=== PATIENT | female | born 1945 | race Caucasian/White ===

== ENCOUNTER 2019-10-29 10:37 | Outpatient (CLI) | payer OTHER, SELFPAY ==
[2019-10-29 12:11] LABS: Blood Urea Nitrogen 8 mg/dL (7-17); Calcium 8.9 mg/dL (8.4-10.2); Carbon Dioxide 26 mmol/L (22-30); Chloride 106 mmol/L (98-107); Cholesterol 128 mg/dL (0-200); Estimated Glomerular Filt Rate > 60; Glucose 95 mg/dL (65-105); HDL Direct 65 mg/dL; Sodium 135 mmol/L (137-145); Triglycerides 110 mg/dL (<150)
[2019-10-29 12:21] LABS: LDL Cholesterol Direct 38 mg/dL
[2019-10-29 12:34] LABS: Vitamin D 25 Hydroxy 51.2 ng/mL
== END 2019-10-29 10:38 | disposition home or self-care (01) ==
PROVIDERS: PCP Internal Medicine; Referring Provider Internal Medicine Medical Oncology; Visit Provider Internal Medicine
DX: C91.10 Chronic lymphocytic leukemia of B-cell type not having achieved remission (principal)
CPT/HCPCS: 36415; 80048; 80061; 82306; 84443

== ENCOUNTER 2020-09-29 12:47 | Outpatient (CLI) | payer OTHER, SELFPAY ==
[2020-09-29 14:23] LABS: Hematocrit 39.2 % (37.0-47.0); Hemoglobin 12.5 g/dL (12.0-15.0); Immature Platelet Fraction Pct 2.6 % (0.9-11.2); Mean Corpuscular HGB Conc 31.9 g/dl (32-36); Mean Corpuscular Hemoglobin 34.8 pg (26-34); Mean Corpuscular Volume 109.2 fl (80-100); Mean Platelet Volume 10.7 fl (7.4-10.4); Platelet Count Result 77 k/mm3 (150-375); Red Blood Count 3.59 M/mm3 (4.2-5.4); Red Cell Distribution Width 14.5 % (11.5-14.5); White Blood Count 5.3 K/mm3 (4.5-10.0)
[2020-09-29 15:01] LABS: Lactate Dehydrogenase 230 U/L (313-618)
== END 2020-09-29 12:48 | disposition home or self-care (01) ==
LOC: ANHLAB 10-17 12:47
PROVIDERS: PCP Internal Medicine; Visit Provider Internal Medicine Medical Oncology
DX: C91.90 Lymphoid leukemia, unspecified not having achieved remission (principal)
CPT/HCPCS: 36415; 83615; 85027; 85055

== ENCOUNTER 2020-09-29 13:51 | Outpatient (CLI) | payer OTHER, SELFPAY ==
[2020-09-29 15:03] LABS: Alanine Aminotransferase 20 U/L (4-35); Albumin Level 2.9 g/dL (3.5-5.1); Alkaline Phosphatase 75 U/L (38-126); Anion Gap 3 mmol/L (8-16); Aspartate Amino Transferase 29 U/L (14-36); Bilirubin,Total 1.1 mg/dL (0.2-1.3); Blood Urea Nitrogen 11 mg/dL (7-17); Calcium 9.3 mg/dL (8.4-10.2); Carbon Dioxide 24 mmol/L (22-30); Chloride 111 mmol/L (98-107); Cholesterol 116 mg/dL (0-200); Estimated Glomerular Filt Rate 40; Glucose 136 mg/dL (65-105); HDL Direct 55 mg/dL; Potassium 3.3 mmol/L (3.4-5.0); Sodium 138 mmol/L (137-145); Triglycerides 85 mg/dL (<150)
[2020-09-29 15:30] LABS: Vitamin D 25 Hydroxy 56.4 ng/mL
[2020-09-29 18:23] LABS: LDL Cholesterol Direct < 30 mg/dL
== END 2020-09-29 13:52 | disposition home or self-care (01) ==
PROVIDERS: PCP Internal Medicine; Visit Provider Nurse Practitioner
DX: E78.5 Hyperlipidemia, unspecified (principal); E03.9 Hypothyroidism, unspecified; E55.9 Vitamin D deficiency, unspecified
CPT/HCPCS: 36415; 80053; 80061; 82306; 83615; 84443; 85027; 85055

== ENCOUNTER 2020-11-17 13:09 | Outpatient (CLI) | payer OTHER, SELFPAY ==
[2020-11-17 14:05] LABS: Basophils Percent Auto 0.2 % (0.2-1.2); Eosinophils Absolute Auto 0.1 K/mm3 (0-0.3); Eosinophils Percent Auto 0.8 % (0-4.4); Hematocrit 41.7 % (37.0-47.0); Hemoglobin 13.4 g/dL (12.0-15.0); Immature Granulocyte Absolute 0.04 K/mm3 (0.00-0.031); Immature Granulocyte Percent A 0.4 % (0-0.5); Immature Platelet Fraction Pct 3.3 % (0.9-11.2); Lymphocytes Absolute Auto 3.44 K/mm3 (0.9-3.2); Mean Corpuscular HGB Conc 32.1 g/dl (32-36); Mean Corpuscular Volume 108.9 fl (80-100); Mean Platelet Volume 10.2 fl (7.4-10.4); Monocytes Absolute Auto 0.8 K/mm3 (0.1-0.6); Monocytes Percent Auto 7.4 % (2.6-8.5); Neutrophils Absolute Auto 6.1 K/mm3 (1.3-6.7); Neutrophils Percent Auto 58.2 % (45.5-73.1); Platelet Count Result 106 k/mm3 (150-375); Red Blood Count 3.83 M/mm3 (4.2-5.4); Red Cell Distribution Width 14.3 % (11.5-14.5); White Blood Count 10.4 K/mm3 (4.5-10.0)
[2020-11-17 14:18] LABS: Alanine Aminotransferase 59 U/L (4-35); Albumin Level 3.3 g/dL (3.5-5.1); Alkaline Phosphatase 134 U/L (38-126); Anion Gap 8 mmol/L (8-16); Aspartate Amino Transferase 53 U/L (14-36); Bilirubin,Total 1.2 mg/dL (0.2-1.3); Blood Urea Nitrogen 16 mg/dL (7-17); Calcium 9.4 mg/dL (8.4-10.2); Carbon Dioxide 24 mmol/L (22-30); Chloride 104 mmol/L (98-107); Cholesterol 133 mg/dL (0-200); Estimated Glomerular Filt Rate 44; Glucose 80 mg/dL (65-110); HDL Direct 83 mg/dL; Lactate Dehydrogenase 251 U/L (313-618); Potassium 3.6 mmol/L (3.4-5.0); Sodium 136 mmol/L (137-145); Triglycerides 88 mg/dL (<150)
[2020-11-17 14:35] LABS: LDL Cholesterol Direct < 30 mg/dL
[2020-11-17 14:48] LABS: Vitamin D 25 Hydroxy 48.3 ng/mL
[2020-11-21 12:52] LABS: Beta-2-Microglobulin 4.11 mg/L (<=2.51)
== END 2020-11-17 13:10 | disposition home or self-care (01) ==
PROVIDERS: PCP Internal Medicine; Visit Provider Internal Medicine
DX: E55.9 Vitamin D deficiency, unspecified (principal); E87.6 Hypokalemia; E78.5 Hyperlipidemia, unspecified; E03.9 Hypothyroidism, unspecified; R79.89 Other specified abnormal findings of blood chemistry; C91.10 Chronic lymphocytic leukemia of B-cell type not having achieved remission
CPT/HCPCS: 36415; 80053; 80061; 82232; 82306; 83615; 84443; 85025; 85055

== ENCOUNTER 2021-02-02 12:40 | Outpatient (CLI) | payer OTHER, SELFPAY ==
[2021-02-02 13:19] LABS: Basophils Percent Auto 0.4 % (0.2-1.2); Eosinophils Absolute Auto 0.1 K/mm3 (0-0.3); Eosinophils Percent Auto 2.6 % (0-4.4); Hematocrit 38.6 % (37.0-47.0); Hemoglobin 12.1 g/dL (12.0-15.0); Immature Platelet Fraction Pct 3.9 % (0.9-11.2); Lymphocytes Absolute Auto 1.77 K/mm3 (0.9-3.2); Mean Corpuscular HGB Conc 31.3 g/dl (32-36); Mean Corpuscular Hemoglobin 35.4 pg (26-34); Mean Corpuscular Volume 112.9 fl (80-100); Mean Platelet Volume 11.1 fl (7.4-10.4); Monocytes Absolute Auto 0.4 K/mm3 (0.1-0.6); Monocytes Percent Auto 7.1 % (2.6-8.5); Neutrophils Absolute Auto 2.8 K/mm3 (1.3-6.7); Neutrophils Percent Auto 54.9 % (45.5-73.1); Platelet Count Result 77 k/mm3 (150-375); Red Blood Count 3.42 M/mm3 (4.2-5.4); Red Cell Distribution Width 14.4 % (11.5-14.5); White Blood Count 5.1 K/mm3 (4.5-10.0)
[2021-02-02 13:29] LABS: Alanine Aminotransferase 18 U/L (4-35); Albumin Level 3.1 g/dL (3.5-5.1); Alkaline Phosphatase 95 U/L (38-126); Anion Gap 6 mmol/L (8-16); Aspartate Amino Transferase 29 U/L (14-36); Bilirubin,Total 1.1 mg/dL (0.2-1.3); Blood Urea Nitrogen 7 mg/dL (7-17); Calcium 8.5 mg/dL (8.4-10.2); Carbon Dioxide 26 mmol/L (22-30); Chloride 107 mmol/L (98-107); Estimated Glomerular Filt Rate > 60; Glucose 131 mg/dL (65-110); Lactate Dehydrogenase 316 U/L (313-618); Potassium 3.6 mmol/L (3.4-5.0); Sodium 139 mmol/L (137-145)
== END 2021-02-02 12:41 | disposition home or self-care (01) ==
PROVIDERS: PCP Internal Medicine; Visit Provider Internal Medicine Medical Oncology
DX: C91.10 Chronic lymphocytic leukemia of B-cell type not having achieved remission (principal)
CPT/HCPCS: 36415; 80053; 83615; 85025; 85055

== ENCOUNTER 2021-03-16 12:00 | Outpatient (CLI) | payer OTHER, SELFPAY ==
[2021-03-16 12:21] LABS: Basophils Percent Auto 0.4 % (0.2-1.2); Eosinophils Absolute Auto 0.1 K/mm3 (0-0.3); Eosinophils Percent Auto 2.2 % (0-4.4); Hematocrit 36.5 % (37.0-47.0); Hemoglobin 11.9 g/dL (12.0-15.0); Immature Granulocyte Absolute 0.01 K/mm3 (0.00-0.031); Immature Granulocyte Percent A 0.2 % (0-0.5); Immature Platelet Fraction Pct 3.1 % (0.9-11.2); Lymphocytes Absolute Auto 1.59 K/mm3 (0.9-3.2); Lymphocytes Percent Auto 31.7 % (18.3-44.2); Mean Corpuscular HGB Conc 32.6 g/dl (32-36); Mean Corpuscular Hemoglobin 36.3 pg (26-34); Mean Corpuscular Volume 111.3 fl (80-100); Mean Platelet Volume 10.6 fl (7.4-10.4); Monocytes Absolute Auto 0.4 K/mm3 (0.1-0.6); Monocytes Percent Auto 8.2 % (2.6-8.5); Neutrophils Absolute Auto 2.9 K/mm3 (1.3-6.7); Neutrophils Percent Auto 57.3 % (45.5-73.1); Red Blood Count 3.28 M/mm3 (4.2-5.4); Red Cell Distribution Width 14.4 % (11.5-14.5)
[2021-03-16 12:28] LABS: Platelet Count Result 67 k/mm3 (150-375)
== END 2021-03-16 12:01 | disposition home or self-care (01) ==
LOC: ANHLAB 12:04
PROVIDERS: PCP Internal Medicine; Visit Provider Internal Medicine Medical Oncology
DX: C91.10 Chronic lymphocytic leukemia of B-cell type not having achieved remission (principal)
CPT/HCPCS: 36415; 85025; 85055

== ENCOUNTER 2021-06-22 12:52 | Outpatient (CLI) | payer OTHER, SELFPAY ==
[2021-06-22 15:11] LABS: Basophils Percent Auto 0.2 % (0.2-1.2); Eosinophils Absolute Auto 0.2 K/mm3 (0-0.3); Eosinophils Percent Auto 2.2 % (0-4.4); Hemoglobin 12.1 g/dL (12.0-15.0); Immature Granulocyte Absolute 0.02 K/mm3 (0.00-0.031); Immature Granulocyte Percent A 0.2 % (0-0.5); Lymphocytes Absolute Auto 1.67 K/mm3 (0.9-3.2); Lymphocytes Percent Auto 17.3 % (18.3-44.2); Mean Corpuscular HGB Conc 32.7 g/dl (32-36); Mean Corpuscular Hemoglobin 35.6 pg (26-34); Mean Corpuscular Volume 108.8 fl (80-100); Mean Platelet Volume 10.9 fl (7.4-10.4); Monocytes Absolute Auto 0.9 K/mm3 (0.1-0.6); Monocytes Percent Auto 8.9 % (2.6-8.5); Neutrophils Absolute Auto 6.9 K/mm3 (1.3-6.7); Neutrophils Percent Auto 71.2 % (45.5-73.1); Platelet Count Result 101 k/mm3 (150-375); Red Cell Distribution Width 15.3 % (11.5-14.5); White Blood Count 9.7 K/mm3 (4.5-10.0)
[2021-06-22 15:18] LABS: Cholesterol 186 mg/dL (0-200); HDL Direct 83 mg/dL; Triglycerides 90 mg/dL (<150)
[2021-06-22 15:20] LABS: Alanine Aminotransferase 23 U/L (4-35); Albumin Level 2.9 g/dL (3.5-5.1); Alkaline Phosphatase 147 U/L (38-126); Anion Gap 3 mmol/L (8-16); Aspartate Amino Transferase 32 U/L (14-36); Bilirubin,Total 2.3 mg/dL (0.2-1.3); Blood Urea Nitrogen 16 mg/dL (7-17); Calcium 8.3 mg/dL (8.4-10.2); Carbon Dioxide 30 mmol/L (22-30); Chloride 104 mmol/L (98-107); Estimated Glomerular Filt Rate > 60; Glucose 120 mg/dL (65-110); Lactate Dehydrogenase 447 U/L (313-618); Potassium 3.8 mmol/L (3.4-5.0); Sodium 137 mmol/L (137-145)
[2021-06-22 15:29] LABS: LDL Cholesterol Direct 49 mg/dL
== END 2021-06-22 12:53 | disposition home or self-care (01) ==
PROVIDERS: PCP Internal Medicine; Referring Provider Internal Medicine Medical Oncology; Visit Provider Nurse Practitioner
DX: C91.10 Chronic lymphocytic leukemia of B-cell type not having achieved remission (principal); E78.5 Hyperlipidemia, unspecified
CPT/HCPCS: 36415; 80053; 80061; 83615; 85025

== ENCOUNTER 2021-07-04 09:33 | Outpatient (CLI) | payer OTHER, SELFPAY ==
--- NOTE | 2021-07-04 09:57 | ECHO_ITS ---
Patient Info Name: Dolores Tariq Age: 76 years : 1945 Gender: Female Ht: 66 in Wt: 192 lbs BSA: 2.04 m2 HR: 66 bpm BP: 144 / 67 mmHg Technical Quality: Good Exam Date: 07/04/2021 10:19 AM Exam Location: [facility] Patient Status: Outpatient Admit Date: 07/04/2021 Staff Ordering Physician: Figueroa Gandara APRN Multimedia Author: Abrahan Holman RDCS, RT Attending Provider: Figueroa Gandara APRN Referring Physician: Juliocesar SHUKLA; Exam Type: CA echo doppler color flow Study Info Indications R01.1 - Cardiac murmur, unspecified Complete two-dimensional, color flow and Doppler transthoracic echocardiogram is performed. Strain analysis performed. Summary 1. Complete two-dimensional, color flow and Doppler transthoracic echocardiogram is performed. 2. Left ventricular chamber dimension is normal. 3. Left ventricular systolic function is normal, estimated at 60-65%. 4. There is mildly increased left ventricular wall thickness. 5. The left ventricular diastolic function is grade I diastolic dysfunction. 6. E/e' 8 is minimally elevated. 7. Global longitudinal strain is normal at -19.4%. 8. There is trace tricuspid valve regurgitation. 9. Mild pulmonary hypertension, estimated pulmonary arterial systolic pressure is 47 mmHg. 10. Dilated inferior vena cava with >50% collapse upon inspiration consistent with elevated right atrial pressure, 10 mmHg. Left Ventricle E/e' 8 is minimally elevated. Global longitudinal strain is normal at -19.4%. Left ventricular chamber dimension is normal. Left ventricular systolic function is normal, estimated at 60-65%. There is mildly increased left ventricular wall thickness. The left ventricular diastolic function is grade I diastolic dysfunction. Right Ventricle Right ventricular systolic function is normal and normal TAPSE 2.3 cm. Right ventricular chamber dimension is normal. Left Atria Left atrial chamber dimension is normal. Right Atria Right atrial chamber dimension is normal. Aortic Valve The aortic valve is trileaflet. There is no aortic valve stenosis. There is no aortic valve regurgitation. Pulmonic Valve There is no pulmonic regurgitation. Mitral Valve There is no mitral valve stenosis. There is no mitral valve regurgitation. Tricuspid Valve There is trace tricuspid valve regurgitation. Mild pulmonary hypertension, estimated pulmonary arterial systolic pressure is 47 mmHg. Pericardium/Pleural There is no pericardial effusion. Inferior Vena Cava Dilated inferior vena cava with >50% collapse upon inspiration consistent with elevated right atrial pressure, 10 mmHg. Aorta The aortic root size at the sinus of Valsalva is normal. Left Ventricular Outflow Tract Name Value Normal LVOT 2D LVOT Diameter 1.9 cm LVOT Doppler LVOT Peak Gradient 7 mmHg LVOT Mean Gradient 3 mmHg LVOT VTI 30 cm LVOT VTI/AV VTI Ratio 0.7 LVOT Stroke Volume 81 ml LVOT CO
== END 2021-07-04 09:34 | disposition home or self-care (01) ==
PROVIDERS: PCP Internal Medicine; Visit Provider Nurse Practitioner
DX: R01.1 Cardiac murmur, unspecified (principal); R60.9 Edema, unspecified; I27.20 Pulmonary hypertension, unspecified
CPT/HCPCS: 93306

== ENCOUNTER 2021-07-13 12:02 | Outpatient (CLI) | payer OTHER, SELFPAY ==
--- NOTE | ~2021-07-13 | XR_ITS ---
EXAMINATION: XR lumbar spine 2-3V DATE: 07/13/2021 12:34 INDICATION: Low back pain, unspecified TECHNIQUE: Anteroposterior and lateral views of the lumbar spine, and cone-down lateral view of the l umbosacral junction were obtained. COMPARISON: CT, 09/08/2014 FINDINGS: There are 3 mm of anterolisthesis of L4 on L5. Vertebral body alignment is otherwise normal . The vertebral body heights are maintained. There is no fracture. There is moderate loss of interver tebral disc space height at L1-2, L2-3, and L5-S1 and mild loss of disc space height at L3-4 and L4-5 . Small degenerative osteophytes project from the anterior endplates of multiple vertebral bodies. Th ere is calcified atherosclerosis of the abdominal aorta which measures up to 3.7 cm on the lateral vi ew. IMPRESSION: 1. Moderate lumbar spondylosis without acute findings. 2. Fusiform infrarenal abdominal aortic aneurysm measuring up to 3.7 cm. Reviewed, dictated and finalized at location B. [employer]
== END 2021-07-13 12:03 | disposition home or self-care (01) ==
PROVIDERS: PCP Internal Medicine; Visit Provider Nurse Practitioner
DX: M54.50 Low back pain, unspecified (principal); M47.816 Spondylosis without myelopathy or radiculopathy, lumbar region; I71.4 Abdominal aortic aneurysm, without rupture
CPT/HCPCS: 72100

== ENCOUNTER 2021-08-16 07:31 | Outpatient (CLI) | payer OTHER, SELFPAY ==
--- NOTE | ~2021-08-16 | CT_ITS ---
EXAMINATION: CTA abdomen DATE: 08/16/2021 08:45 INDICATION: Abdominal aortic aneurysm without rupture TECHNIQUE: Computed tomographic angiography (CTA) of the abdomen was performed with 100 mL Omnipaque- 350 intravenous contrast. Maximum intensity projection 3D-reconstructions of the aorta and other michael mj were constructed by the technologist on a separate workstation. The dose-length product (DLP) wa s 391.63 mGy-cm. Automated exposure control and iterative reconstruction technique were employed. COMPARISON: 09/08/2014 FINDINGS: Minimal dependent atelectasis is present in the lung bases. The heart size is normal. The l iver, spleen, pancreas, and adrenal glands are normal. The gallbladder is surgically absent. The kidn eys are unremarkable. There are no pathologically enlarged abdominal lymph nodes. There is severe lum bar spondylosis. There is no free intraperitoneal gas or evidence of bowel obstruction. There is stenosis of the proximal celiac axis with poststenotic dilatation, possibly due to compressi on by the median arcuate ligament. The superior mesenteric artery is unremarkable. Segmental branches of the superior mesenteric artery demonstrate calcified atherosclerosis. The inferior mesenteric art yony is diminutive. There are two left and one right renal arteries. There is a 3.2 x 3.0 cm fusiform infrarenal abdominal aortic aneurysm. There is no aortic dissection. IMPRESSION: 1. 3.2 cm fusiform infrarenal abdominal aortic aneurysm. 2. 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 Reviewed, dictated and finalized at location A. IMPRESSION: 1. 3.2 cm fusiform infrarenal abdominal aortic aneurysm. 2. 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
--- NOTE | ~2021-08-16 | MR_ITS ---
EXAMINATION: MR lumbar spine wo [facility] EXAM DATE: 08/16/2021 08:17 INDICATION: M54.50 - Low back pain, unspecified . TECHNIQUE: Multi-sequential, multiplanar MR images of the lumbar spine were obtained without contrast . Sagittal T1, T2, T2 fat saturation images. Axial T2 weighted images. There is no prior study for comparison. FINDINGS: Moderate disc disease L-1-2, L2-3 and L5-S1, mild at the other mid lumbar levels. There is 2 mm retrolisthesis L1 on L2, 3 mm retrolisthesis L2 on L3, 2 mm retrolisthesis L3 on L4, 3 mm cedric listhesis L4 on L5, and 5 mm retrolisthesis L5 on S1. The conus medullaris terminates at the L1 level and has normal signal intensity and morphology. There are some degenerative endplate signal changes L5-S1. There are no suspicious focal vertebral signal abnormalities identified. Level by level evaluation: T12-L1: Disc does not extend beyond the endplate margin. Facet arthropathy: Mild. Neural foraminal stenosis: No stenosis. Central canal stenosis: No stenosis. L1-L2: There is a mild diffuse disc bulge. Facet arthropathy: Mild. Neural foraminal stenosis: No stenosis. Central canal stenosis: No stenosis. L2-L3: There is a mild to moderate diffuse disc bulge. Facet arthropathy: Mild to moderate. Neural foraminal stenosis: Mild right. Central canal stenosis: Mild. L3-L4: There is a mild to moderate diffuse disc bulge. Facet arthropathy: Mild to moderate. Neural foraminal stenosis: Mild bilateral. Central canal stenosis: Mild. L4-L5: There is a moderate diffuse disc bulge. Facet arthropathy: Moderate to severe . Ligamentum flavum enlargement. Neural foraminal stenosis: Moderate bilateral. Central canal stenosis: Moderate to severe. L5-S1: There is a moderate diffuse disc bulge. Facet arthropathy: Moderate to severe . Ligamentum flavum enlargement. Neural foraminal stenosis: Moderate to severe right, moderate left. Central canal stenosis: Moderate. IMPRESSION: 1. Moderate to severe lower lumbar arthropathy, stenosis as above. Reviewed, dictated and finalized at location B.
[2021-08-16 08:36] LABS: Estimated Glomerular Filt Rate 37
== END 2021-08-16 07:32 | disposition home or self-care (01) ==
LOC: ANHIMG 07:38
PROVIDERS: PCP Internal Medicine; Visit Provider Nurse Practitioner
DX: I71.4 Abdominal aortic aneurysm, without rupture (principal)
CPT/HCPCS: 72148; 74175; Q9967

== ENCOUNTER 2021-09-21 12:43 | Outpatient (CLI) | payer OTHER, SELFPAY ==
[2021-09-21 13:28] LABS: Basophils Percent Auto 0.5 % (0.2-1.2); Eosinophils Absolute Auto 0.2 K/mm3 (0-0.3); Eosinophils Percent Auto 3.8 % (0-4.4); Hematocrit 40.5 % (37.0-47.0); Hemoglobin 13.2 g/dL (12.0-15.0); Immature Granulocyte Absolute 0.02 K/mm3 (0.00-0.031); Immature Granulocyte Percent A 0.3 % (0-0.5); Immature Platelet Fraction Pct 2.8 % (0.9-11.2); Lymphocytes Absolute Auto 1.57 K/mm3 (0.9-3.2); Lymphocytes Percent Auto 25.8 % (18.3-44.2); Mean Corpuscular HGB Conc 32.6 g/dl (32-36); Mean Corpuscular Hemoglobin 33.2 pg (26-34); Mean Corpuscular Volume 101.8 fl (80-100); Mean Platelet Volume 10.6 fl (7.4-10.4); Monocytes Absolute Auto 0.6 K/mm3 (0.1-0.6); Monocytes Percent Auto 10.4 % (2.6-8.5); Neutrophils Absolute Auto 3.6 K/mm3 (1.3-6.7); Neutrophils Percent Auto 59.2 % (45.5-73.1); Platelet Count Result 95 k/mm3 (150-375); Red Blood Count 3.98 M/mm3 (4.2-5.4); Red Cell Distribution Width 13.8 % (11.5-14.5); White Blood Count 6.1 K/mm3 (4.5-10.0)
[2021-09-21 13:36] LABS: Alanine Aminotransferase 15 U/L (6-35); Albumin Level 3.1 g/dL (3.5-5.1); Alkaline Phosphatase 147 U/L (38-126); Anion Gap 0 mmol/L (8-16); Aspartate Amino Transferase 35 U/L (14-36); Bilirubin,Total 1.1 mg/dL (0.2-1.3); Blood Urea Nitrogen 17 mg/dL (7-17); Calcium 8.9 mg/dL (8.4-10.2); Carbon Dioxide 33 mmol/L (22-30); Chloride 100 mmol/L (98-107); Estimated Glomerular Filt Rate 48; Glucose 125 mg/dL (65-110); Lactate Dehydrogenase 365 U/L (313-618); Sodium 133 mmol/L (137-145)
== END 2021-09-21 12:44 | disposition home or self-care (01) ==
LOC: ANHLAB 12:46
PROVIDERS: PCP Internal Medicine; Visit Provider Internal Medicine Medical Oncology
DX: C91.10 Chronic lymphocytic leukemia of B-cell type not having achieved remission (principal)
CPT/HCPCS: 36415; 80053; 83615; 85025; 85055

== ENCOUNTER 2022-02-01 11:01 | Outpatient (CLI) | payer OTHER, SELFPAY ==
[2022-02-01 11:33] LABS: Basophils Percent Auto 0.2 % (0.2-1.2); Eosinophils Absolute Auto 0.3 K/mm3 (0-0.3); Eosinophils Percent Auto 2.2 % (0-4.4); Hematocrit 46.4 % (37.0-47.0); Hemoglobin 15.2 g/dL (12.0-15.0); Immature Granulocyte Absolute 0.03 K/mm3 (0.00-0.031); Immature Granulocyte Percent A 0.2 % (0-0.5); Immature Platelet Fraction Pct 4.3 % (0.9-11.2); Lymphocytes Absolute Auto 2.41 K/mm3 (0.9-3.2); Lymphocytes Percent Auto 19.3 % (18.3-44.2); Mean Corpuscular HGB Conc 32.8 g/dl (32-36); Mean Corpuscular Hemoglobin 34.4 pg (26-34); Mean Platelet Volume 10.7 fl (7.4-10.4); Monocytes Absolute Auto 1.1 K/mm3 (0.1-0.6); Monocytes Percent Auto 8.7 % (2.6-8.5); Neutrophils Absolute Auto 8.7 K/mm3 (1.3-6.7); Neutrophils Percent Auto 69.4 % (45.5-73.1); Platelet Count Result 92 k/mm3 (150-375); Red Blood Count 4.42 M/mm3 (4.2-5.4); Red Cell Distribution Width 13.4 % (11.5-14.5); White Blood Count 12.5 K/mm3 (4.5-10.0)
[2022-02-01 11:40] LABS: Lactate Dehydrogenase 168 U/L (120-246)
[2022-02-01 11:42] LABS: Alanine Aminotransferase 30 U/L (6-35); Albumin Level 3.2 g/dL (3.5-5.1); Alkaline Phosphatase 195 U/L (38-126); Anion Gap 6 mmol/L (8-16); Aspartate Amino Transferase 41 U/L (14-36); Bilirubin,Total 2.5 mg/dL (0.2-1.3); Blood Urea Nitrogen 28 mg/dL (7-17); Carbon Dioxide 32 mmol/L (22-30); Chloride 99 mmol/L (98-107); Cholesterol 167 mg/dL (0-200); Estimated Glomerular Filt Rate 48; Glucose 114 mg/dL (65-110); HDL Direct 69 mg/dL; Potassium 3.8 mmol/L (3.4-5.0); Sodium 137 mmol/L (137-145); Triglycerides 158 mg/dL (<150)
[2022-02-01 11:53] LABS: LDL Cholesterol Direct 59 mg/dL
== END 2022-02-01 11:02 | disposition home or self-care (01) ==
PROVIDERS: PCP Internal Medicine; Referring Provider Internal Medicine Medical Oncology; Visit Provider Nurse Practitioner
DX: E78.5 Hyperlipidemia, unspecified (principal); C91.10 Chronic lymphocytic leukemia of B-cell type not having achieved remission
CPT/HCPCS: 36415; 80053; 80061; 83615; 85025; 85055

== ENCOUNTER 2022-04-08 17:15 | Inpatient (IN) | payer OTHER, SELFPAY ==
[2022-04-08] VITALS (10 sets, daily range): BP systolic 139–148; BP diastolic 62–74; PULSE 62–76; RESP 11–22; TEMP 36.6–36.9; O2SAT 90–99; BMI 27.8
--- NOTE | ~2022-04-08 | US_ITS ---
US abdomen limited INDICATION: Elevated bilirubin. PROCEDURE: Realtime right upper abdominal ultrasound. COMPARISON: No prior studies for comparison. FINDINGS: The pancreas is normal without focal mass or pancreatic ductal dilation. Gallbladder exhib its coarse heterogeneous echotexture with attenuation, consistent with fatty infiltration. The liver surface appears nodular, compatible with cirrhosis. There is normal directional flow in the portal v ein. Gallbladder is surgically absent. Common bile duct measures 5 mm. No sonographic Holman's sign. IMPRESSION: 1: Nodular liver surface, consistent with cirrhosis. 2: Status post cholecystectomy. Reviewed, dictated and finalized at location A. HOUSE EXAMINER
--- NOTE | ~2022-04-08 | XR_ITS ---
EXAMINATION: XR chest 2V Exam Date/Time: 04/08/2022 17:55 WATER QUALITY TESTER HISTORY: weakness Comparison: 06/05/2016. RESULT: Lines, tubes, and devices: None. Lungs and pleura: Stable reticular peripheral opacities, likely representing senescent change. Cardiomediastinal silhouette: Stable. Other: No acute osseous or upper abdominal finding. IMPRESSION: No acute cardiopulmonary process. Reviewed, dictated and finalized at location K. R QUALITY TESTER
--- NOTE | ~2022-04-08 | US_ITS ---
EXAMINATION:US venous doppler LE BI INDICATION:Leg edema TECHNIQUE: Multiple grayscale, color flow and Doppler images of the right and left lower extremity de ep venous systems were obtained and reviewed. COMPARISON:No prior studies for comparison. FINDINGS: The common femoral, superficial femoral and popliteal veins demonstrate normal respiratory variation, augmentation and compressibility. Color flow is also seen within the posterior tibial, pe roneal, greater saphenous and profunda veins. IMPRESSION: 1: No lower extremity deep venous thrombosis. Reviewed, dictated and finalized at location A. ER OPERATOR
--- NOTE | ~2022-04-08 | MR_ITS ---
EXAMINATION: MR MRCP wo/w con/w 3D wo ind DATE: 04/09/2022 12:41 INDICATION: Jaundice. Abdominal pain. TECHNIQUE: Magnetic resonance imaging (MRI) of the abdomen was performed without and with 16 mL Multi alf intravenous contrast. Sequences included coronal T2-weighted SS-FSE, coronal T2-weighted FS SS- FSE, coronal T2-weighted FS FIESTA, axial T2-weighted FS FIESTA, axial T2-weighted FIESTA, sagittal T 2-weighted SS-FSE, axial T1-weighted dual-echo FSPGR, axial T2-weighted SS-FSE, axial T1-weighted LAV A, axial T2-weighted STIR FSE. Thick-slab T2-weighted FRFSE-XL images were obtained for magnetic reso nance cholangiopancreatography (MRCP). Rotating maximum intensity projection 3-D reconstructions of t he volumetric data were created by the technologist. Postcontrast sequences included a time course of axial T1-weighted LAVA. COMPARISON: CT dated 04/08/2022 FINDINGS: ABDOMEN MRI: Heart size is normal. No pericardial or pleural effusion. Nodular cirrhotic liver. There is splenomeg claudio along with a recanalized umbilical vein and dilated coronary vein with gastroesophageal varices c onsistent with portal venous hypertension. Cholecystectomy clips the gallbladder fossa. Pancreas, gwyn ateral adrenal glands and kidneys are normal. Mild edematous wall thickening in the stomach and sever al loops of small bowel. Colon is not visualized with subtotal colectomy with ileocolic anastomosis i n the pelvis evident on prior CT. Diffuse subcutaneous and mesenteric edema along with small amount o f scattered ascites. No pathologically enlarged abdominal lymphadenopathy. Normal bone marrow signal throughout. ABDOMEN MRCP: The common bile duct measures up to 5 mm in maximal diameter which is within normal limits. It appear s patent throughout with no evident choledocholithiasis or strictures. No intrahepatic biliary ductal dilation or pancreatic ductal dilation. IMPRESSION: 1. Status post cholecystectomy with patent, normal caliber common bile duct and no intrahepatic bilia ry ductal dilation. 2. Cirrhosis with splenomegaly and portosystemic collaterals consistent with portal venous hypertensi on. 2. Mild edematous wall thickening of the stomach and several loops of small bowel which could be rela mag to liver disease or other nonspecific gastroenteritis. Reviewed, dictated and finalized at location A. OPERATOR IMPRESSION: 1. Status post cholecystectomy with patent, normal caliber common bile duct and no intrahepatic biliary ductal dilation. 2. Cirrhosis with splenomegaly and portosystemic collaterals consistent with po rtal venous hypertension. 2. Mild edematous wall thickening of the stomach and several loops of small bow el which could be related to liver disease or other nonspecific gastroenteritis .
--- NOTE | ~2022-04-08 | CT_ITS ---
EXAMINATION: CT abdomen pelvis w con DATE: 04/08/2022 18:02 INDICATION: abd pain TECHNIQUE: Computed tomography (CT) of the abdomen and pelvis was performed with 100 mL Omnipaque-350 intravenous contrast. Automated exposure control and iterative reconstruction technique were employe d. The dose-length product was 1250.07 mGy-cm. COMPARISON: CTPA abdomen 08/16/2021 and 09/08/2014 CT abdomen pelvis. FINDINGS: Lower thorax: Mild senescent lung changes. Aortic valve and coronary artery calcification. Liver: Borderline hepatomegaly. Nodular liver border. Biliary/Gallbladder: Gallbladder is absent. Mild inflammatory change in the nayeli hepatis. Minimal in trahepatic and no significant extrahepatic bile duct dilation Pancreas: Calcifications as can be seen with chronic pancreatitis Spleen: Normal. Adrenals:No mass. Kidneys: No mass, stone, or hydronephrosis. GI tract: Distal esophageal and gastric wall edema. Proximal and mid small bowel dilation, with seros al edema, wall thickening, and mucosal hyperemia. Near total colectomy with ileocolic anastomosis . D iverticulosis without diverticulitis. Mesentery/Peritoneum: No ascites, mass, or free air. Periaortic lymphadenopathy. Retroperitoneum: No mass. Atherosclerotic abdominal aortic and/or arterial calcifications. Somewhat b ilobed fusiform dilation of the upper abdominal aorta measuring up to 3.9 cm Pelvis: Pelvic organs are within normal limits. Soft Tissues: Mild body wall edema. Bones: No acute osseous finding. IMPRESSION: 1. Esophagitis/gastritis, with diffuse edema and hyperemia of the small bowel as can be seen with inf ectious, inflammatory, and ischemic etiologies. 2. Inflammatory change in the nayeli hepatis, may be reactive to the adjacent gastritis, however ascen ding cholangitis is not excluded. 3. Possible cirrhosis. 4. 3.9 cm abdominal aortic aneurysm, recommend follow-up ultrasound aorta in one year. Reviewed, dictated and finalized at location K. PROJECT ENGINEER IMPRESSION: 1. Esophagitis/gastritis, with diffuse edema and hyperemia of the small bowel a s can be seen with infectious, inflammatory, and ischemic etiologies. 2. Inflammatory change in the nayeli hepatis, may be reactive to the adjacent ga stritis, however ascending cholangitis is not excluded. 3. Possible cirrhosis. 4. 3.9 cm abdominal aortic aneurysm, recommend follow-up ultrasound aorta in on e year.
--- NOTE | ~2022-04-08 | MR_ITS ---
EXAMINATION: MR MRCP wo/w con/w 3D wo ind DATE: 04/14/2022 10:19 INDICATION: Hyperbilirubinemia. TECHNIQUE: Magnetic resonance imaging (MRI) of the abdomen was performed without and with 15 mL Multi Lisa intravenous contrast. Sequences included coronal T2-weighted FS FSE, coronal T2-weighted FSE, a xial T1-weighted LAVA, coronal FS FIESTA, axial dual-echo T1-weighted SPGR, coronal lava-FLEX, sagitt al T2-weighted FSE, axial T2-weighted FSE, and axial DWI. Thick-slab T2-weighted FSE images were obta ined for magnetic resonance cholangiopancreatography (MRCP). Maximum intensity projection 3-D reconst ructions of the volumetric data were created by the technologist. Postcontrast sequences included cor onal LAVA-flex and time course of axial T1-weighted LAVA. COMPARISON: Abdomen MRI 04/09/2022, CT abdomen and pelvis 04/08/2022 FINDINGS: ABDOMEN MRI: There are small pleural effusions. The liver demonstrates surface nodularity, consistent with cirrhosis. There are changes of cholecystectomy. The spleen is normal in size. The pancreas, ad renal glands, and left kidney are normal. There is a 5 mm cyst in right kidney. There is edema in the peritoneum and body wall. There is a small volume of ascites. There are periumbilical and paraesopha geal varices. There are no dilated loops of bowel. There is wall thickening of small bowel. There are no pathologically enlarged lymph nodes. ABDOMEN MRCP: The common duct is normal and measures 5 mm. No choledocholithiasis. IMPRESSION: 1. No choledocholithiasis. 2. Cirrhosis of the liver with portal venous hypertension. 3. Small volume of ascites. 4. Small pleural effusions. 5. Wall thickening of small bowel, which may be interstitial edema or enteritis. Reviewed, dictated and finalized at location A. ING CHAIR PUSHER IMPRESSION: 1. No choledocholithiasis. 2. Cirrhosis of the liver with portal venous hypertension. 3. Small volume of ascites. 4. Small pleural effusions. 5. Wall thickening of small bowel, which may be interstitial edema or enteritis .
--- NOTE | 2022-04-08 17:20 | ECG_ITS ---
Measurements Intervals [place] Rate: 74 P: 25 NE: 152 QRS: 19 QRSD: 85 T: 17 QT: 409 QTc: 455 Interpretive Statements SINUS RHYTHM WITH OCCASIONAL SUPRAVENTRICULAR PREMATURE COMPLEXES NONSPECIFIC T-WAVE ABNORMALITY NO PREVIOUS ECG AVAILABLE FOR COMPARISON Electronically Signed On 04-09-2022 15:19:20 PICKER PACKER by Leticia Pichardo M.D.
[2022-04-08 17:52] LABS: Basophils Percent Auto 0.1 % (0.2-1.2); Eosinophils Percent Auto 0.1 % (0-4.4); Hematocrit 38.1 % (37.0-47.0); Hemoglobin 13.6 g/dL (12.0-15.0); Immature Granulocyte Absolute 0.15 K/mm3 (0.00-0.031); Immature Granulocyte Percent A 0.8 % (0-0.5); Lymphocytes Absolute Auto 1.53 K/mm3 (0.9-3.2); Lymphocytes Percent Auto 8.3 % (18.3-44.2); Mean Corpuscular HGB Conc 35.7 g/dl (32-36); Mean Corpuscular Hemoglobin 34.2 pg (26-34); Mean Corpuscular Volume 95.7 fl (80-100); Mean Platelet Volume 12.1 fl (7.4-10.4); Monocytes Absolute Auto 1.6 K/mm3 (0.1-0.6); Monocytes Percent Auto 8.7 % (2.6-8.5); Neutrophils Absolute Auto 15.1 K/mm3 (1.3-6.7); Platelet Count Result 114 k/mm3 (150-375); Red Blood Count 3.98 M/mm3 (4.2-5.4); Red Cell Distribution Width 18.8 % (11.5-14.5); White Blood Count 18.4 K/mm3 (4.5-10.0)
[2022-04-08 17:53] LABS: Estimated CRCL calculation 30 ml/min; Estimated Glomerular Filt Rate 40
[2022-04-08 18:02] LABS: Ammonia < 9 umol/L (9-30)
[2022-04-08 18:17] LABS: Alanine Aminotransferase 202 U/L (6-35); Alkaline Phosphatase 290 U/L (38-126); Anion Gap 9 mmol/L (8-16); Aspartate Amino Transferase 205 U/L (14-36); Bilirubin,Total 31.9 mg/dL (0.2-1.3); Blood Urea Nitrogen 38 mg/dL (7-17); Calcium 9.7 mg/dL (8.4-10.2); Carbon Dioxide 28 mmol/L (22-30); Chloride 87 mmol/L (98-107); Estimated CRCL calculation 36 ml/min; Estimated Glomerular Filt Rate 48; Glucose 415 mg/dL (65-110); NT Pro B Type Natriuretic Pept 532 pg/mL (5-100); Potassium 3.5 mmol/L (3.4-5.0); Sodium 124 mmol/L (137-145)
[2022-04-08 18:30] LABS: Influenza A QL RT-PCR Negative (Negative); Influenza B QL RT-PCR Negative (Negative); SARS-CoV-2 RNA PCR Negative
--- NOTE | 2022-04-08 18:35 | ED.GENADULT ---
HPI - General Adult General Chief complaint: Weakness Stated complaint: increased weakness, no po intake, jaundice Time Seen by Provider: 04/08/22 17:31 History of Present Illness HPI narrative: 37-year-old female history of cholecystectomy presenting the emergency department for evaluation of generalized fatigue over the last few days. Patient called EMS and patient had initially been unaware of her extreme jaundice. Patient states she is having some abdominal pain that does radiate to her back. Denies associated nausea or vomiting. Patient states he no longer drinks alcohol but did drink alcohol years ago. Patient denies any known prior history of cirrhosis. Related Data Home Medications Medication Instructions Recorded Confirmed cholestyramine (with sugar) 4 gram 1 ea PO TID 04/08/22 04/08/22 powder for susp in a packet hydrocodone 10 mg-acetaminophen 1 tablet PO Q6H PRN Pain (Scale 04/08/22 04/08/22 325 mg tablet Score 7-10) potassium chloride 20 mEq 20 meq PO DAILY 04/08/22 04/08/22 tablet,extended release (K-Tab) Allergies Allergy/AdvReac Type Severity Reaction Status Date / Time No Known Allergies Allergy Verified 04/08/22 17:40 Review of Systems Review of Systems: CONSTITUTIONAL: Denies fever, chills, or sweats. EYES: Denies visual changes, redness, or discharge. ENT: Denies rhinorrhea, congestion, sore throat, or otalgia. CARDIOVASCULAR: Denies chest pain, palpitations, or edema. RESPIRATORY: Denies cough or dyspnea. GASTROINTESTINAL: Abdominal pain GENITOURINARY: Denies dysuria or hematuria. SKIN: Denies rash or itching. MUSCULOSKELETAL: Denies back pain, joint pain, or myalgia. NEUROLOGIC: Denies headache, numbness, or weakness. [facility] Past Medical History Medical History Carpal tunnel syndrome of right wrist Chronic pain syndrome COVID-19 FH: cholecystectomy Lower abdominal pain Rectal pain Surgical History Surgical History History of tubal ligation Hx of removal of ovary Hx of tonsillectomy Family History Family History Sibling Patient's sister is in good health Patient's brother is in good health Father Family history of malignant neoplasm Patient's father is Malignant neoplasm of prostate Carcinoma of colon Mother Family history of malignant neoplasm Patient's mother is Social History Social History Smoking packs per day: 0 Smoking cigarettes per day: 0.0 Years smoked: 60 Smoking pack-years: 0.00 Smoking status: Current every day smoker Second hand tobacco smoke exposure: No Alcohol intake: never Substance use: never Substance use type: does not use Lack of Transportation: No Lack of Food: Never True Current Housing: I Have Housing Concerned About Future Housing: No Difficulty Paying Gas/Electric Bills: No Difficulty Paying for Meds: No Currently Unemployed: No Education: Trade/Vocational Certificate Difficulty w/ Childcare or Family Care: No Spiritual care concerns: No Exam Narrative: APPEARANCE: Well appearing, no pain, no distress, well-nourished. HEAD: normocephalic, atraumatic. EYES: PERRLA/EOMI, conjunctivae clear. NOSE: Normal no drainage EARS:TMS clear with good light reflex. THROAT: Pharynx clear, no exudate. NECK: Supple. No adenopathy, no masses. RESPIRATORY: Airway patent, respirations nonlabored. Clear to auscultation bilaterally, no rales, rhonchi, wheezing. CARDIOVASCULAR: Mild upper abdominal tenderness to palpation. No peritonitis ABDOMINAL: Soft, nontender, nondistended, normal bowel sounds MUSCULOSKELETAL: Moves all extremities. Strength/ROM intact, No edema, No calf tenderness. NEURO: Alert. Cranial nerves II through XII intact. Grossly intact SKIN
[2022-04-08] MEDS: HYDROmorphone HCL INJ (*CRX) 1 MG/ML SYR 0.5 MG IV PUSH ×2 (18:56→21:43)
[2022-04-08] MEDS: SODIUM CHLORIDE 0.9% IV 1,000 ML 999 ML IV CONT ×2 (18:56→22:46)
[2022-04-08] MEDS: PANTOPRAZOLE SODIUM IV 40 MG VIAL IV PUSH (18:56)
[2022-04-08 20:07] LABS: Appearance Urine Slightly Cloudy (Clear); Bilirubin Urine 3+ (Negative); Blood Urine 1+ (Negative); Color Urine Dark Yellow (Yellow); Glucose Urine UA 2+ mg/dL (Negative); Ketones Urine Trace mg/dL (Negative); Leukocyte Esterase Ur Negative LEU/UL (Negative); Nitrate Urine Negative (Negative); Protein Urine 1+ mg/dL (Negative)
[2022-04-08 20:17] LABS: Bacteria Urine Trace /hpf; Mucus Urine Few /lpf; Squamous Epithelial Cell Urine Rare /hpf (Few)
[2022-04-08 20:18] LABS: Add Urine Microscopic? YES
[2022-04-08 20:41] LABS: Influenza A QL RT-PCR Negative (Negative); Influenza B QL RT-PCR Negative (Negative); SARS-CoV-2 RNA PCR Negative
[2022-04-08 20:42] LABS: Reflex Lactic Acid Yes or No Add Lactic
[2022-04-08 21:47] LABS: Lactic Acid 3.5 mmol/L (0.7-2.0)
--- NOTE | 2022-04-08 22:59 | ADMGEN ---
This patient, Dolores Tariq, was admitted to Medical Room 349-01. Patient/family oriented to hospital policies and general routines including ID bracelet, bed and alarms, visiting hours, pain management, procedures, bathroom and other care routines, personal items, smoking policy, room service/diet, and visiting hours. Information on how to activate the Rapid Response Team has been discussed. Patient/Family are encouraged to report perceived risks to care and to ask questions if they do not understand what they are told or what they should do.
[2022-04-09] MEDS: SODIUM CHLORIDE 0.9% IV 1,000 ML 75 ML IV CONT ×2 (00:06→22:28)
--- NOTE | 2022-04-09 03:48 | PM.IMHP ---
H&P: HPI History of Present Illness Date/Time: 04/09/22 03:48 Chief Complaint: altered mental status Narrative: This is a 77-year-old female with past medical history significant for chronic lymphocytic leukemia in remission, status post total colectomy, chronic diarrhea, former smoker, patient was brought to the emergency room due to altered mental status, obtundation, lethargy spending all day in bed, not eating well, yellow discoloration of the a skin, abdominal pain, patient denies any fevers, rigors, chills, nausea, vomiting, no cough, no sputum production. preliminary workup was significant for CT of abdomen and pelvis was reported as: IMPRESSION: 1. Esophagitis/gastritis, with diffuse edema and hyperemia of the small bowel as can be seen with infectious, inflammatory, and ischemic etiologies. 2. Inflammatory change in the nayeli hepatis, may be reactive to the adjacent gastritis, however ascending cholangitis is not excluded. 3. Possible cirrhosis. 4. 3.9 cm abdominal aortic aneurysm, recommend follow-up ultrasound aorta in one year. Review of Systems Review of Systems: ROS unobtainable: Yes unobtainable due to mental status ( lethargy, obtundation) PMFSH Past Medical History Medical History Carpal tunnel syndrome of right wrist Chronic pain syndrome COVID-19 FH: cholecystectomy Lower abdominal pain Rectal pain Surgical History Surgical History History of tubal ligation Hx of removal of ovary Hx of tonsillectomy Family History Family History Sibling Patient's sister is in good health Patient's brother is in good health Father Family history of malignant neoplasm Patient's father is Malignant neoplasm of prostate Carcinoma of colon Mother Family history of malignant neoplasm Patient's mother is Social History Social History Smoking packs per day: 0 Smoking cigarettes per day: 0.0 Years smoked: 60 Smoking pack-years: 0.00 Smoking status: Current every day smoker Second hand tobacco smoke exposure: No Alcohol intake: never Substance use: never Substance use type: does not use Lack of Transportation: No Lack of Food: Never True Current Housing: I Have Housing Concerned About Future Housing: No Difficulty Paying Gas/Electric Bills: No Difficulty Paying for Meds: No Currently Unemployed: No Education: Trade/Vocational Certificate Difficulty w/ Childcare or Family Care: No Spiritual care concerns: No Meds Home Medications and Allergies Home Medications Medication Instructions Recorded Confirmed Type aspirin 81 mg chewable tablet 81 mg PO DAILY #90 tabs 03/22/19 04/08/22 Rx furosemide 40 mg tablet 60 mg PO QAM #45 tabs 10/17/21 04/08/22 Rx cholestyramine (with sugar) 4 gram 1 ea PO TID 04/08/22 04/08/22 History powder for susp in a packet hydrocodone 10 mg-acetaminophen 1 tablet PO Q6H PRN Pain (Scale 04/08/22 04/08/22 History 325 mg tablet Score 7-10) potassium chloride 20 mEq 20 meq PO DAILY 04/08/22 04/08/22 History tablet,extended release (K-Tab) Allergies Allergy/AdvReac Type Severity Reaction Status Date / Time No Known Allergies Allergy Verified 04/08/22 17:40 Vital Signs Vital Signs - 24 hr 04/08/22 17:14 04/08/22 17:38 04/08/22 17:21 Temperature 98.4 F Pulse Rate 73 69 Respiratory Rate 15 11 L Blood Pressure 141/62 H Pulse Oximetry 99 96 Oxygen Delivery Room Air 04/08/22 17:33 04/08/22 18:10 04/08/22 18:15 Temperature Pulse Rate 73 64 62 Respiratory Rate 13 18 14 Blood Pressure 139/74 Pulse Oximetry 98 Oxygen Delivery 04/08/22 18:31 04/08/22 18:45 04/08/22 19:00 Temperature Pulse Rate 76 72 69 Respiratory Rate 16 20 16 Bl
[2022-04-09 04:10] LABS: Basophils Percent Auto 0.2 % (0.2-1.2); Eosinophils Percent Auto 0.2 % (0-4.4); Hematocrit 36.1 % (37.0-47.0); Hemoglobin 12.8 g/dL (12.0-15.0); Immature Granulocyte Absolute 0.09 K/mm3 (0.00-0.031); Immature Granulocyte Percent A 0.7 % (0-0.5); Immature Platelet Fraction Pct 5.3 % (0.9-11.2); Lymphocytes Absolute Auto 1.28 K/mm3 (0.9-3.2); Lymphocytes Percent Auto 10.2 % (18.3-44.2); Mean Corpuscular HGB Conc 35.5 g/dl (32-36); Mean Corpuscular Hemoglobin 34.2 pg (26-34); Mean Corpuscular Volume 96.5 fl (80-100); Mean Platelet Volume 10.9 fl (7.4-10.4); Monocytes Absolute Auto 0.9 K/mm3 (0.1-0.6); Monocytes Percent Auto 6.9 % (2.6-8.5); Neutrophils Absolute Auto 10.2 K/mm3 (1.3-6.7); Neutrophils Percent Auto 81.8 % (45.5-73.1); Platelet Count Result 77 k/mm3 (150-375); Red Blood Count 3.74 M/mm3 (4.2-5.4); Red Cell Distribution Width 19.2 % (11.5-14.5); White Blood Count 12.5 K/mm3 (4.5-10.0)
[2022-04-09 04:30] LABS: Alanine Aminotransferase 204 U/L (6-35); Albumin Level 2.5 g/dL (3.5-5.1); Alkaline Phosphatase 249 U/L (38-126); Anion Gap 4 mmol/L (8-16); Aspartate Amino Transferase 194 U/L (14-36); Bilirubin,Total 29.6 mg/dL (0.2-1.3); Blood Urea Nitrogen 37 mg/dL (7-17); Calcium 8.6 mg/dL (8.4-10.2); Carbon Dioxide 29 mmol/L (22-30); Chloride 95 mmol/L (98-107); Estimated CRCL calculation 40 ml/min; Estimated Glomerular Filt Rate 48; Glucose 280 mg/dL (65-110); Potassium 3.9 mmol/L (3.4-5.0); Sodium 128 mmol/L (137-145)
[2022-04-09] MEDS: ALBUMIN HUMAN 25% 25 GM/100 ML 200 ML IVPB ×3 (05:43→20:57)
[2022-04-09 06:00] VITALS: BP 140/68; PULSE 70; RESP 18; TEMP 36.6; O2SAT 98
--- NOTE | 2022-04-09 10:40 | PC.NURSE ---
Called Hospitalist Shaggy for diet order. No answer. Keeping patient NPO for MRCP. Patient is off unit to radiology now. Once patient returns will call Shaggy again for diet orders.
--- NOTE | 2022-04-09 13:35 | PC.NURSE ---
Patient is back on unit. Shaggy and fiction and nonfiction writer prose spoke and will contact GI regarding diet orders.
--- NOTE | 2022-04-09 14:00 | PC.NURSE ---
Coverage Analyst spoke with Dr. Toledo. He states that he has communicated with Dr. Santiago to resume care. Coverage Analyst called to confirm with Dr. Santiago and Dr. Santiago has put in new orders.
--- NOTE | 2022-04-09 14:14 | PM.IMPN ---
Progress Note: A&P Assessment and Plan (1) Sepsis: Code(s): A41.9 - Sepsis, unspecified organism Status: Acute Assessment and Plan: Question sepsis. Cultures pending continue antibiotics - currently on vancomycin and Zosyn. Will stop vancomycin. (2) Ascending cholangitis: Code(s): K83.09 - Other cholangitis Status: Acute Assessment and Plan: MRCP noted. No obstruction noted. Common bile duct is normal size. (3) Abdominal pain: Code(s): R10.9 - Unspecified abdominal pain Status: Acute Assessment and Plan: Likely related to liver disease. Possibly related some gastritis or enteritis - Although this is less likely. (4) Generalized weakness: Code(s): R53.1 - Weakness Status: Acute Assessment and Plan: likely secondary to chronic illness and deconditioning (5) Lumbar stenosis: Code(s): M48.061 - Spinal stenosis, lumbar region without neurogenic claudication Status: Acute Assessment and Plan: unchanged (6) CLL (chronic lymphocytic leukemia): Code(s): C91.10 - Chronic lymphocytic leukemia of B-cell type not having achieved remission Status: Acute Assessment and Plan: in remission (7) Chronic pain syndrome: Code(s): G89.4 - Chronic pain syndrome Status: Acute Assessment and Plan: holding p.o. 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 She does have cirrhosis on MRCP. Appreciate GI input. Workup otherwise pending. Subjective Date/time seen: 04/09/22 14:14 patient denies any abdominal pain at this point in time. Exam Const: General: well developed, ill appearing chronically, lethargic, patient obtunded and average body habitus Nutritional Appearance: average body habitus Orientation/consciousness: patient oriented x3, patient obtunded and lethargic HENMT: Head: normal to inspection, normocephalic and atraumatic Ears: hearing grossly normal bilaterally Face/Nose/Sinus: normal facial exam Face and sinus: normal facial exam Eyes: General: appearance normal, both eyes and all related structures Sclera: scleral abnormality bilateral ( icterus) Pupils: Equal, round and reactive pupils present EOM: EOMs intact bilaterally Neck: Neck: full ROM, no lymphadenopathy and no JVD Thyroid: thyroid normal Lymphatic: no lymphadenopathy noted Resp: Effort & Inspection: normal respiratory effort and able to speak in complete sentences Auscultation: clear to auscultation bilaterally Cardio: Jugular venous distension: no JVD Rate: regular rate Rhythm: regular rhythm Heart sounds: S1 normal heart sound present and S2 normal heart sound present GI: Inspection: normal to inspection : General: Yes deferred Skin: General skin exam: jaundice Rashes: no rashes Wounds: no wounds Neuro: General: patient oriented x3, CN's II-XI intact bilaterally, patient obtunded and Unable to assess gait Cranial nerves: Yes CN's II-XII intact bilaterally and Yes Equal, round and reactive pupils present Cognition (Neuro): abnormal cognition ( obtundation, lethargy) Speech: normal speech Gait exam (Neuro): Unable to assess gait Motor exam (neuro): 5/5 motor strength present throughout Extrem: General: edema bilateral ( lower extremities) Objective Data Vital Signs Vital Signs: Vital Signs - 24 hr 04/08/22 17:14 04/08/22 17:38 04/08/22 17:21 Temperature 98.4 F Pulse Rate 73 69 Respiratory Rate 15 11 L Blood Pressure 141/62 H Pulse Oxim
--- NOTE | 2022-04-09 14:20 | WPDGICN ---
Assessment and Plan Assessment and plan (1) Cirrhosis: Code(s): K74.60 - Unspecified cirrhosis of liver Status: Acute Assessment and Plan: new diagnosis with jaundice, I do not think is cholangitis given MRCP reading and normal size bile duct but covered with antibiotics will get INR and also work up for cirrhosis including hepatitis, AIH, etc. Denies use of new drugs, no recent alcohol get LDH because history of CLL and continue to monitor ? decompensated cirrhosis, no ascites based on imaging will calculate meld score based on hospital course may need transfer to tertiary center with liver program (2) Sepsis: Code(s): A41.9 - Sepsis, unspecified organism Status: Acute Assessment and Plan: on antibiotics also abdominal pain, ? gastroenteritis- she has chronic diarrhea since had colectomy (3) Jaundice: Code(s): R17 - Unspecified jaundice Status: Acute Assessment and Plan: new finding ? from sepsis, but also cirrhosis, history of CLL (4) Abdominal pain: Code(s): R10.9 - Unspecified abdominal pain Status: Acute Assessment and Plan: on abx (5) Generalized weakness: Code(s): R53.1 - Weakness Status: Acute (6) Chronic diarrhea: Code(s): K52.9 - Noninfective gastroenteritis and colitis, unspecified Status: Acute (7) CLL (chronic lymphocytic leukemia): Code(s): C91.10 - Chronic lymphocytic leukemia of B-cell type not having achieved remission Status: Acute Assessment and Plan: get ldh (8) Hx of total colectomy: Code(s): Z90.49 - Acquired absence of other specified parts of digestive tract Status: Acute GI Consult Note Consult date/time: 04/09/22 14:20 Reason for consult: jaundice, cirrhosis HPI: Dolores Tariq is a 77 year old female ?with history of chronic lymphocytic leukemia in remission with treatment last time about 1.5 years ago (ibrutinib) followed by Dr Mckenzie and discontinued after hematological remission and diagnosed after had B symptoms with persistent leukocytosis, status post total colectomy about 8 years ago after perforation, also had cholecystectomy, chronic diarrhea since, former smoke. Here with several days of feeling weak, obtundation and also short term memory loss with decrease appetite and some abdominal pain, son also noted yellow discoloration of the? skin. She is not the best historian, son is helping. Denies history of liver disease, son says that used to drink but several years ago. No new medications, she is using norco but only as needed and denies acetaminophen otherwise. No history of hepatitis. CT scan showed new diagnosis of cirrhosis, MRCP normal size bile duct and cirrhosis with changes of portal hypertension. Bilirubin high at 29, transaminases 200, plat 70, wbc 18k Review of Systems Constitutional: Constitutional: Reports chills, Reports fatigue, Denies headache(s) and Reports lethargy Eyes: Eyes: Denies blurry vision ENT: Reports Normal hearing present Cardiovascular: Cardiovascular: Denies chest pain and Denies dyspnea Respiratory: Respiratory: Denies dyspnea Gastrointestinal: Gastrointestinal: Reports no additional gastrointestinal complaints Genitourinary: Genitourinary: Denies dysuria Musculoskeletal: Musculoskeletal: Denies neck pain Integumentary/Breasts: Comments: jaundice Neurologic: Reports Normal hearing present and Reports confusion Psychiatric: Psychiatric: Denies anxiety Endocrine: Endocrine: Denies change in body appearance Hematologic/Lymphatic: Hematologic/Lymphatic: Denies easy bleeding Allergic/Immunologic: Allergic/Immunologic: Denies urticaria PMFSH Past Medical History Medical History (Updated 04/09/22 @ 14:32 by Seymour Dalal MD) Carpal tunnel syndrome of right wrist Chronic pain syndrome Cirrhosis COVID-19 FH: cholecystectomy Lower abdominal pain Rectal pain Surgical History Jim
[2022-04-09 14:40] VITALS: BP 120/60; PULSE 71; RESP 18; TEMP 36.4; O2SAT 97
[2022-04-09 15:27] LABS: INR 2.8; Prothrombin Time 28.2 Seconds (11.1-14.7)
[2022-04-09] MEDS: CHOLESTYRAMINE (W/ SUGAR) 4 GM POWD.PACK PO ×2 (15:34→18:31)
--- NOTE | 2022-04-09 18:36 | PC.NURSE ---
Grant Manager spoke to Neeraj (patients son) and if unable to get ahold of the son contact his boss Shawn Galicia and he will page him to come to the phone. Number is [phone]
[2022-04-09 20:00] VITALS: PULSE 70; RESP 22; O2SAT 94
[2022-04-09] MEDS: PANTOPRAZOLE SODIUM IV 40 MG VIAL IV PUSH (20:57)
[2022-04-09 21:42] VITALS: BP 136/41; PULSE 70; RESP 22; TEMP 37.1; O2SAT 94
[2022-04-10] MEDS: ALBUMIN HUMAN 25% 25 GM/100 ML 200 ML IVPB (05:15)
[2022-04-10 06:00] VITALS: BP 139/58; PULSE 70; RESP 22; TEMP 37.1; O2SAT 93
[2022-04-10 06:08] LABS: Eosinophils Percent Auto 0.2 % (0-4.4); Hematocrit 27.5 % (37.0-47.0); Hemoglobin 9.6 g/dL (12.0-15.0); Immature Granulocyte Absolute 0.06 K/mm3 (0.00-0.031); Immature Granulocyte Percent A 1.1 % (0-0.5); Immature Platelet Fraction Pct 5.2 % (0.9-11.2); Lymphocytes Absolute Auto 0.55 K/mm3 (0.9-3.2); Lymphocytes Percent Auto 9.8 % (18.3-44.2); Mean Corpuscular HGB Conc 34.9 g/dl (32-36); Mean Corpuscular Hemoglobin 33.9 pg (26-34); Mean Corpuscular Volume 97.2 fl (80-100); Mean Platelet Volume 11.6 fl (7.4-10.4); Monocytes Absolute Auto 0.4 K/mm3 (0.1-0.6); Monocytes Percent Auto 6.3 % (2.6-8.5); Neutrophils Absolute Auto 4.6 K/mm3 (1.3-6.7); Neutrophils Percent Auto 82.6 % (45.5-73.1); Platelet Count Result 59 k/mm3 (150-375); Red Blood Count 2.83 M/mm3 (4.2-5.4); Red Cell Distribution Width 19.5 % (11.5-14.5); White Blood Count 5.6 K/mm3 (4.5-10.0)
[2022-04-10 06:12] LABS: Ammonia 20 umol/L (9-30)
[2022-04-10 06:19] LABS: INR 2.4; Prothrombin Time 25.2 Seconds (11.1-14.7)
[2022-04-10 06:37] LABS: Alanine Aminotransferase 133 U/L (6-35); Albumin Level 3.7 g/dL (3.5-5.1); Alkaline Phosphatase 145 U/L (38-126); Anion Gap 6 mmol/L (8-16); Aspartate Amino Transferase 162 U/L (14-36); Bilirubin,Total 31.1 mg/dL (0.2-1.3); Blood Urea Nitrogen 30 mg/dL (7-17); Calcium 9.1 mg/dL (8.4-10.2); Carbon Dioxide 27 mmol/L (22-30); Chloride 101 mmol/L (98-107); Estimated CRCL calculation 44 ml/min; Estimated Glomerular Filt Rate 54; Glucose 175 mg/dL (65-110); Lactate Dehydrogenase 167 U/L (120-246); Potassium 2.9 mmol/L (3.4-5.0); Sodium 134 mmol/L (137-145)
[2022-04-10 07:06] LABS: Platelet Estimate Decreased (Adequate)
[2022-04-10 07:07] LABS: Anisocytosis 1+ (NORMAL); Hypochromasia 1+ (NORMAL)
[2022-04-10 07:08] LABS: Hepatitis B Surface Antigen Negative (Negative); Poikilocytosis 1+ (NORMAL); Schistocytes None Seen (NORMAL); Target Cells 2+ (NORMAL)
[2022-04-10 07:10] LABS: HAV RESULT Negative (Negative); Hepatitis B Core IgM Result Negative (Negative)
[2022-04-10 07:22] LABS: Hepatitis C Virus Antibody Negative (Negative)
[2022-04-10] MEDS: ASPIRIN 81 MG CHEWABLE TABLET PO (09:26)
[2022-04-10] MEDS: POTASSIUM CHLORIDE 20 MEQ TABLET 40 MEQ PO (09:26)
[2022-04-10] MEDS: CHOLESTYRAMINE (W/ SUGAR) 4 GM POWD.PACK PO ×3 (09:26→18:24)
[2022-04-10] MEDS: PANTOPRAZOLE SODIUM IV 40 MG VIAL IV PUSH ×2 (09:26→20:50)
--- NOTE | 2022-04-10 11:05 | PM.IMPN ---
Progress Note: A&P Assessment and Plan (1) Sepsis: Code(s): A41.9 - Sepsis, unspecified organism Status: Acute Assessment and Plan: sepsis present on admission lactic acidosis and leukocytosis and now with positive blood cultures. Could be related to UTI as a source. MRCP is not consistent with ascending cholangitis although she may have passed a stone or sludge through with resolution of the obstruction. Continue IV antibiotics. (2) Ascending cholangitis: Code(s): K83.09 - Other cholangitis Status: Acute Assessment and Plan: MRCP noted. No obstruction noted. Common bile duct is normal size. As above. Appreciate GI input. (3) Abdominal pain: Code(s): R10.9 - Unspecified abdominal pain Status: Acute Assessment and Plan: Likely related to liver disease. Possibly related some gastritis or enteritis. No significant ascites to suggest SBP. Continue IV antibiotics. Continue to monitor. (4) Generalized weakness: Code(s): R53.1 - Weakness Status: Acute Assessment and Plan: likely secondary to chronic illness and deconditioning. Start PT and OT. (5) Conjugated hyperbilirubinemia: Code(s): E80.6 - Other disorders of bilirubin metabolism Status: Acute Assessment and Plan: Elevated LFTs present on admission. Likely secondary to underlying liver disease worsened by her bacteremia and UTI. She does have cirrhosis to suggest a more acute on chronic issue. AST/ALT improving. Appreciate GI input. Hepatitis panel negative. INR at 2.4 related to her cirrhosis. Suspect low plt count also related to her cirrhosis (spleen normal though). Ammonia level 20. Suspect confusion related to hyerbili. (6) Thrombocytopenia: Code(s): D69.6 - Thrombocytopenia, unspecified Status: Acute Assessment and Plan: patient with chronic thrombocytopenia. Platelet count 114 K on admission but has trended downward related to above. Continue to follow. Transfuse as necessary. (7) Anemia: Code(s): D64.9 - Anemia, unspecified Status: Acute Assessment and Plan: Patient normally does not have underlying anemia. Hemoglobin on admission was normal. Hemoglobin yesterday was 12.8 but has dropped to 9.6 today. No evidence of acute blood loss although this is on the differential possibly from varices? . Will check serial H&H. Check stool guaiac. Will stop IV fluids. Will hold albumin at this time. Transfuse as necessary. Check iron studies (8) Chronic pain syndrome: Code(s): G89.4 - Chronic pain syndrome Status: Acute Assessment and Plan: holding p.o. pain medication due to altered mental status. (9) CLL (chronic lymphocytic leukemia): Code(s): C91.10 - Chronic lymphocytic leukemia of B-cell type not having achieved remission Status: Acute Assessment and Plan: in remission (10) Hyponatremia: Code(s): E87.1 - Hypo-osmolality and hyponatremia Status: Acute Subjective Date/time seen: 04/10/22 11:05 Interval history: 77yo female with history for CLL (in remission), status post total colectomy with chronic diarrhea, and chronic pain brought to ED for AMS, lethargy, anorexia, jaudiced skin and abdominal pain. Assuming care. Chart reviewed. Patient slept poorly because of back pain. Denies shortness of breath or chest pain. She feels her abdominal pain is much worse and is diffuse. Exam Narrative: AF 98.8 139/58 70 22 93% ra Gen - NARD Chest -Lungs clear anteriorly and in the flanks. Normal respiratory rate. CV - RRR S1/S2 With a 2/6 systolic murmur heard loudest in the right upper sternal border that radiated to the carotids. Abd - soft. Diffusely tender. No guarding, rebound or referred pain. Positive bowel sounds Ext - 2+ LE edema Neuro - Alert and oriented x4 but repetitive at times. Skin - Warm and dry. severely jaundic
[2022-04-10 12:00] LABS: Hematocrit 27.7 % (37.0-47.0); Hemoglobin 9.7 g/dL (12.0-15.0)
[2022-04-10 12:06] LABS: Potassium 3.4 mmol/L (3.4-5.0)
[2022-04-10 12:32] LABS: Iron 32 ug/dL (37-170)
[2022-04-10 12:46] LABS: Percent Iron Saturation 26 % (20-50)
[2022-04-10 13:16] LABS: Folic Acid > 20.0 ng/mL (2.76->20)
--- NOTE | 2022-04-10 13:50 | PC.NURSE ---
Patient had large bowel movement that was dark red/black. Called Dr. Santiago to update on condition. Orders to be put in by physician.
[2022-04-10 14:00] VITALS: BP 151/47; PULSE 81; RESP 18; TEMP 36.6; O2SAT 97
--- NOTE | 2022-04-10 14:02 | WPDGIPROGNO ---
Progress Note: A&P Assessment and Plan (1) Melena: Code(s): K92.1 - Melena Status: Acute Assessment and Plan: today passed large amount of dark stool and noted drop in h/h iv protonix and octreotide- will do EGD, patient could have varices since new diagnosis of cirrhosis, other differential ulcer, etc (2) E coli bacteremia: Code(s): R78.81 - Bacteremia; B96.20 - Unspecified Escherichia coli [E. coli] as the cause of diseases classified elsewhere Status: Acute Assessment and Plan: on iv antibiotic probably also this caused decompensated cirrhosis (high MELD score- 29) (3) Sepsis: Code(s): A41.9 - Sepsis, unspecified organism Status: Acute (4) Cirrhosis: Code(s): K74.60 - Unspecified cirrhosis of liver Status: Acute Assessment and Plan: new diagnosis MELD score 29 work up in progress may need transfer if worsening condition (5) Jaundice: Code(s): R17 - Unspecified jaundice Status: Acute Assessment and Plan: multifactorial with sepsis, cirrhosis, probably now bleeding she is sick may need transfer to hepatology service based on hospital course MRCP reviewed and normal bile duct size (6) Acute blood loss anemia: Code(s): D62 - Acute posthemorrhagic anemia Status: Acute Assessment and Plan: egd tomorrow (7) Thrombocytopenia: Code(s): D69.6 - Thrombocytopenia, unspecified Status: Acute Assessment and Plan: probably from cirrhosis h/o CLL- had normal ldh (8) Hyponatremia: Code(s): E87.1 - Hypo-osmolality and hyponatremia Status: Acute Subjective Date/time seen: 04/10/22 14:02 Interval history: she has + E coli blood cultures, still jaundice and just passed dark stool. No major changes. Review of Systems Review of Systems: All systems reviewed & are unremarkable except as noted in HPI and below Exam Const: General: ill appearing chronically, lethargic and average body habitus Orientation/consciousness: patient oriented x3 and patient obtunded HENMT: Head: normal to inspection, normocephalic and atraumatic Ears: hearing grossly normal bilaterally Eyes: General: appearance normal, both eyes and all related structures Sclera: scleral abnormality bilateral ( icterus) EOM: EOMs intact bilaterally Neck: Neck: full ROM and no lymphadenopathy Resp: Effort & Inspection: normal respiratory effort and able to speak in complete sentences Auscultation: clear to auscultation bilaterally Cardio: Jugular venous distension: no JVD Rate: regular rate Rhythm: regular rhythm GI: Inspection: distended GI Palp: Yes Soft to palpation and Yes Tenderness to palpation present (GI) (diffusely, no rebound) Auscultation: normal bowel sounds Skin: General skin exam: jaundice Neuro: General: patient oriented x3 and CN's II-XI intact bilaterally Speech: normal speech Motor exam (neuro): 5/5 motor strength present throughout Extrem: General: edema bilateral ( lower extremities) Objective Data Vital Signs Vital Signs: Vital Signs - 24 hr 04/09/22 14:40 04/09/22 21:42 04/09/22 20:00 Temperature 97.5 F L 98.7 F Pulse Rate 71 70 70 Respiratory Rate 18 22 H 22 H Blood Pressure 120/60 136/41 L Pulse Oximetry 97 94 94 Oxygen Delivery Room Air 04/10/22 06:00 04/10/22 09:26 Temperature 98.8 F Pulse Rate 70 Respiratory Rate 22 H Blood Pressure 139/58 L Pulse Oximetry 93 Oxygen Delivery Room Air Intake/Output Intake/Output: Intake & Output 04/07/22 04/08/22 04/09/22 04/10/22 23:59 23:59 23:59 23:59 Intake Total 1050 2670 1120 Output Total 200 Balance 1050 2470 1120 Meds/Results Medications: Active Medications Generic Name Dose Route Start Last Admin Trade Name Freq PRN Reason Stop Dose Admin Aspirin 81 mg 04/09/22 09:00 04/10/22 09:26 Aspirin 81 Mg Chewable Tablet PO 81 mg DAILY JORDAN Administration Cholestyramine Resin 4 gm
[2022-04-10 17:52] LABS: Hematocrit 28.7 % (37.0-47.0)
[2022-04-10 20:45] VITALS: BP 153/56; PULSE 72; RESP 18; TEMP 37.2; O2SAT 96
[2022-04-11] VITALS (7 sets, daily range): BP systolic 129–151; BP diastolic 49–72; PULSE 61–71; RESP 18–25; TEMP 36.2–36.9; O2SAT 94–97
[2022-04-11 01:15] LABS: Hematocrit 29.7 % (37.0-47.0); Hemoglobin 10.3 g/dL (12.0-15.0)
[2022-04-11 06:01] LABS: Basophils Percent Auto 0.1 % (0.2-1.2); Eosinophils Percent Auto 0.4 % (0-4.4); Hematocrit 30.3 % (37.0-47.0); Hemoglobin 10.6 g/dL (12.0-15.0); Immature Granulocyte Absolute 0.09 K/mm3 (0.00-0.031); Immature Granulocyte Percent A 0.9 % (0-0.5); Immature Platelet Fraction Pct 4.4 % (0.9-11.2); Lymphocytes Absolute Auto 0.83 K/mm3 (0.9-3.2); Lymphocytes Percent Auto 8.2 % (18.3-44.2); Mean Corpuscular Hemoglobin 34.1 pg (26-34); Mean Corpuscular Volume 97.4 fl (80-100); Mean Platelet Volume 10.3 fl (7.4-10.4); Monocytes Absolute Auto 0.8 K/mm3 (0.1-0.6); Monocytes Percent Auto 7.9 % (2.6-8.5); Neutrophils Absolute Auto 8.3 K/mm3 (1.3-6.7); Neutrophils Percent Auto 82.5 % (45.5-73.1); Platelet Count Result 55 k/mm3 (150-375); Red Blood Count 3.11 M/mm3 (4.2-5.4); Red Cell Distribution Width 20.5 % (11.5-14.5); White Blood Count 10.1 K/mm3 (4.5-10.0)
[2022-04-11 06:22] LABS: Alanine Aminotransferase 135 U/L (6-35); Albumin Level 3.5 g/dL (3.5-5.1); Alkaline Phosphatase 149 U/L (38-126); Anion Gap 5 mmol/L (8-16); Aspartate Amino Transferase 163 U/L (14-36); Bilirubin Direct 18.8 mg/dL (0-0.3); Bilirubin,Total 33.2 mg/dL (0.2-1.3); Blood Urea Nitrogen 24 mg/dL (7-17); Calcium 8.8 mg/dL (8.4-10.2); Carbon Dioxide 26 mmol/L (22-30); Chloride 105 mmol/L (98-107); Estimated CRCL calculation 44 ml/min; Estimated Glomerular Filt Rate 54; Glucose 214 mg/dL (65-110); Magnesium 1.8 mg/dL (1.6-2.3); Phosphorus 2.4 mg/dL (2.5-4.5); Potassium 3.4 mmol/L (3.4-5.0); Sodium 136 mmol/L (137-145)
[2022-04-11] MEDS: PANTOPRAZOLE SODIUM IV 40 MG VIAL IV PUSH ×2 (08:25→20:12)
[2022-04-11] MEDS: LACTATED RINGERS 1,000 ML 150 ML IV CONT (11:09)
--- NOTE | 2022-04-11 11:15 | WPDANESEPPF ---
Anes - Initial Pre Proc Eval Procedure: Operation Date: 04/11/22 12:00 Proposed Procedures p Esophagogastroduodenoscopy EGD - Seymour Dalal MD Date/Time: 04/11/22 11:15 Surgeon: Alex Ruelas MD Pre Op Diagnosis: Ascending cholangitis, abdominal pain, jaundice Patient Data Age: 77 Gender: F Height: 1.68 m Weight: 78.1 kg Last Vital Signs Temp 97.7 F 04/11/22 11:05 Pulse 71 04/11/22 11:05 Resp 20 04/11/22 11:05 BP 135/49 L 04/11/22 11:05 Pulse Ox 94 04/11/22 11:05 O2 Del Method Room Air 04/11/22 11:05 Allergies Allergy/AdvReac Type Severity Reaction Status Date / Time No Known Allergies Allergy Verified 04/08/22 17:40 Home Medications Medication Instructions Recorded Confirmed Type aspirin 81 mg chewable tablet 81 mg PO DAILY #90 tabs 03/22/19 04/08/22 Rx furosemide 40 mg tablet 60 mg PO QAM #45 tabs 10/17/21 04/08/22 Rx cholestyramine (with sugar) 4 gram 1 ea PO TID 04/08/22 04/08/22 History powder for susp in a packet hydrocodone 10 mg-acetaminophen 1 tablet PO Q6H PRN Pain (Scale 04/08/22 04/08/22 History 325 mg tablet Score 7-10) potassium chloride 20 mEq 20 meq PO DAILY 04/08/22 04/08/22 History tablet,extended release (K-Tab) Laboratory Tests 04/10/22 04/10/22 04/10/22 11:51 11:51 11:51 WBC RBC Hgb 9.7 g/dL L g/dL (12.0-15.0) Hct 27.7 % L % (37.0-47.0) MCV MCH MCHC RDW Plt Count MPV Immature Gran % (Auto) Neut % (Auto) Lymph % (Auto) Perry % (Auto) Eos % (Auto) Baso % (Auto) Lymph # (Auto) Perry # (Auto) Eos # (Auto) Baso # (Auto) Abs Immat Gran (auto) Absolute Neuts (auto) Absolute Nucleated RBC Nucleated RBC % % Immature Plt Fraction Sodium Potassium 3.4 mmol/L mmol/L (3.4-5.0) Chloride Carbon Dioxide Anion Gap BUN Creatinine Estim Creat Clear Calc Estimated GFR Glucose Calcium Phosphorus Magnesium Iron 32 ug/dL L ug/dL (37-170) TIBC 124 ug/dL L ug/dL (261-462) % Saturation 26 % % (20-50) Ferritin 527.00 ng/mL H ng/mL (11.1-264) Total Bilirubin Direct Bilirubin AST ALT Alkaline Phosphatase Total Protein Albumin Vitamin B12 933.0 pg/mL H pg/mL (239-931) Folate > 20.0 ng/mL H ng/mL (2.76->20) 04/10/22 04/11/22 04/11/22 17:22 00:53 05:52 WBC 10.1 K/mm3 H K/mm3 (4.5-10.0) RBC 3.11 M/mm3 L M/mm3 (4.2-5.4) Hgb 10.0 g/dL L g/dL 10.3 g/dL L g/dL 10.6 g/dL L g/dL (12.0-15.0) (12.0-15.0) (12.0-15.0) Hct 28.7 % L % 29.7 % L % 30.3 % L % (37.0-47.0) (37.0-47.0) (37.0-47.0) MCV 97.4 fl fl (80-100) MCH 34.1 pg H pg (26-34) MCHC 35.0 g/dl g/dl (32-36) RDW 20.5 % H % (11.5-14.5) Plt Count 55 k/mm3 L k/mm3 (150-375) MPV 10.3 fl fl (7.4-10.4) Immature Gran % (Auto) 0.9 % H % (0-0.5) Neut % (Auto) 82.5 % H % (45.5-73.1) Lymph % (Auto) 8.2 % L % (18.3-44.2) Perry % (Auto) 7.9 % % (2.6-8.5) Eos % (Auto) 0.4 % % (0-4.4) Baso % (Auto) 0.1 % L % (0.2-1.2) Lymph # (Auto) 0.83 K/mm3 L K/mm3 (0.9-3.2) Perry # (Auto) 0.8 K/mm3 H K/mm3 (0.1-0.6) Eos # (Auto) 0.0 K/mm3 K/mm3 (0-0.3) Baso # (Auto) 0.0 K/mm3 K/mm3 (0.0-0.1) Abs Immat Gran (auto) 0.09 K/mm3 H K/mm3 (0.00-0.031) Absolute Neuts (auto
[2022-04-11] MEDS: BENZOCAINE (*SP) 60 ML SPRAY CAN (HURRICAINE) 1 SPRAY MUCOUS MEM (11:31)
--- NOTE | 2022-04-11 11:54 | PM.IMPN ---
Progress Note: A&P Assessment and Plan (1) Sepsis: Code(s): A41.9 - Sepsis, unspecified organism Status: Acute Assessment and Plan: Sepsis present on admission lactic acidosis and leukocytosis and now with positive blood cultures. Could be related to UTI as a source. MRCP is not consistent with ascending cholangitis although she may have passed a stone or sludge through with resolution of the obstruction. Sepsis symptoms improving. WBC better overall. UCx and BCx growing EColi. Narrow IV antibiotics. (2) Anemia: Code(s): D64.9 - Anemia, unspecified Status: Acute Assessment and Plan: Patient does not have chronic anemia. Hemoglobin on admission was normal. Hemoglobin dropped from 12.8 to 9.6 in 24hrs. Hgb stable on repeat. She did pass a large dark stool and octreotide started. Transfuse as necessary. GI was aware with plans for EGD today. EGD - showing gastritis, gastric ulcer and hiatal hernia. Continue PPI. (3) Conjugated hyperbilirubinemia: Code(s): E80.6 - Other disorders of bilirubin metabolism Status: Acute Assessment and Plan: Elevated LFTs present on admission. Likely secondary to underlying liver disease worsened by her bacteremia and UTI. She does have cirrhosis to suggest a more acute on chronic issue. AST/ALT unchanged. Bili unchanged at 33 (Direct at 19). Hepatitis panel negative. INR at 2.4 related to her cirrhosis. Ammonia level 20. Follow. Appreciate GI input. (4) Abdominal pain: Code(s): R10.9 - Unspecified abdominal pain Status: Acute Assessment and Plan: Likely related to liver disease. Possibly related to gastritis and gastric ulcer. No significant ascites to suggest SBP. Continue IV antibiotics. Continue to monitor. (5) Cirrhosis: Code(s): K74.60 - Unspecified cirrhosis of liver Status: Acute Assessment and Plan: As above (6) Thrombocytopenia: Code(s): D69.6 - Thrombocytopenia, unspecified Status: Acute Assessment and Plan: patient with chronic thrombocytopenia. Platelet count 114 K on admission but has trended downward. Stable at 55K now. Continue to follow. Transfuse as necessary. (7) Ascending cholangitis: Code(s): K83.09 - Other cholangitis Status: Acute Assessment and Plan: MRCP noted. No obstruction noted. Common bile duct is normal size. As above. Appreciate GI input. (8) Hyponatremia: Code(s): E87.1 - Hypo-osmolality and hyponatremia Status: Acute Assessment and Plan: Resolved (9) Chronic pain syndrome: Code(s): G89.4 - Chronic pain syndrome Status: Acute Assessment and Plan: Holding p.o. pain medication due to altered mental status. (10) Generalized weakness: Code(s): R53.1 - Weakness Status: Acute Assessment and Plan: likely secondary to chronic illness and deconditioning. Continue PT and OT. (11) CLL (chronic lymphocytic leukemia): Code(s): C91.10 - Chronic lymphocytic leukemia of B-cell type not having achieved remission Status: Acute Assessment and Plan: Stable. In remission Subjective Date/time seen: 04/11/22 11:54 Interval history: 77yo female with history for CLL (in remission), status post total colectomy with chronic diarrhea, and chronic pain brought to ED for AMS, lethargy, anorexia, jaudiced skin and abdominal pain. Patient slept okay. No orthopnea. No complaints of chest pain shortness of breath. No change in her diffuse abdominal pain. She did have a large bowel movement that was dark in color yesterday. She denies any lightheadedness or dizziness. Exam Narrative: AF 97.7 129/62 64 25 94% ra Gen - NARD lying almost flat in bed Chest -Lungs clear anteriorly and in the flanks. Normal respiratory rate. CV - RRR S1/S2 Abd - soft. Diffusely tender. Positive bowel sounds Ext - 2+ LE edema
--- NOTE | 2022-04-11 12:13 | SUR.PHASEII ---
1212 REPORT GIVEN TO Jasmyne MCNEAL RN
[2022-04-11] MEDS: cefTRIAXone 2 GM in SODIUM CHLORIDE 0.9% IV 100 ML 200 ML IVPB (12:34)
[2022-04-11] MEDS: POTASSIUM/PHOSPHORUS/SODIUM 1.5 GM PACKET 1 PACKET PO (12:35)
--- NOTE | 2022-04-11 13:40 | PCPTNOTE ---
Attempted PT eval, pt refused due to feeling too weak/having pain. RN aware. Will follow.
[2022-04-11] MEDS: CHOLESTYRAMINE (W/ SUGAR) 4 GM POWD.PACK PO ×2 (14:29→17:37)
[2022-04-12 05:44] VITALS: BP 150/57; PULSE 65; RESP 18; TEMP 36.6; O2SAT 97
[2022-04-12 06:21] LABS: Basophils Percent Auto 0.1 % (0.2-1.2); Eosinophils Absolute Auto 0.1 K/mm3 (0-0.3); Eosinophils Percent Auto 0.6 % (0-4.4); Hematocrit 31.1 % (37.0-47.0); Hemoglobin 10.5 g/dL (12.0-15.0); Immature Granulocyte Percent A 0.9 % (0-0.5); Immature Platelet Fraction Pct 5.4 % (0.9-11.2); Lymphocytes Absolute Auto 0.87 K/mm3 (0.9-3.2); Lymphocytes Percent Auto 8.1 % (18.3-44.2); Mean Corpuscular HGB Conc 33.8 g/dl (32-36); Mean Corpuscular Hemoglobin 34.2 pg (26-34); Mean Corpuscular Volume 101.3 fl (80-100); Mean Platelet Volume 11.5 fl (7.4-10.4); Monocytes Absolute Auto 0.8 K/mm3 (0.1-0.6); Monocytes Percent Auto 7.8 % (2.6-8.5); Neutrophils Absolute Auto 8.8 K/mm3 (1.3-6.7); Neutrophils Percent Auto 82.5 % (45.5-73.1); Platelet Count Result 62 k/mm3 (150-375); Red Blood Count 3.07 M/mm3 (4.2-5.4); Red Cell Distribution Width 20.4 % (11.5-14.5); White Blood Count 10.7 K/mm3 (4.5-10.0)
[2022-04-12 06:35] LABS: Alanine Aminotransferase 130 U/L (6-35); Albumin Level 3.2 g/dL (3.5-5.1); Alkaline Phosphatase 137 U/L (38-126); Anion Gap 6 mmol/L (8-16); Aspartate Amino Transferase 142 U/L (14-36); Bilirubin Indirect 5.3 mg/dL (0-1.1); Blood Urea Nitrogen 25 mg/dL (7-17); Calcium 8.5 mg/dL (8.4-10.2); Carbon Dioxide 24 mmol/L (22-30); Chloride 104 mmol/L (98-107); Estimated CRCL calculation 48 ml/min; Estimated Glomerular Filt Rate > 60; Glucose 223 mg/dL (65-110); Potassium 3.3 mmol/L (3.4-5.0); Sodium 134 mmol/L (137-145)
[2022-04-12 06:45] LABS: Bilirubin,Total 33.7 mg/dL (0.2-1.3)
[2022-04-12 08:08] LABS: Hypochromasia 1+ (NORMAL); Platelet Estimate Decreased (Adequate); Schistocytes None Seen (NORMAL); Target Cells 2+ (NORMAL)
[2022-04-12 08:15] LABS: Glucose Point of Care 266 mg/dl (65-105)
[2022-04-12 08:44] LABS: Hemoglobin A1C 12.4 % (<5.7)
--- NOTE | 2022-04-12 09:39 | PCPTNOTE ---
Attempted PT evaluation, Pt refused stating this afternoon. RN aware. Will Follow.
--- NOTE | 2022-04-12 09:58 | PM.IMPN ---
Progress Note: A&P Assessment and Plan (1) Sepsis: Code(s): A41.9 - Sepsis, unspecified organism Status: Acute Assessment and Plan: Sepsis present on admission lactic acidosis and leukocytosis and now with positive blood cultures. [place] to be related to UTI as the source of the bacteremia. MRCP is not consistent with ascending cholangitis although she may have passed a stone or sludge with resolution of the obstruction. Sepsis symptoms improving. WBC better overall. UCx and BCx growing EColi sensitive to Rocephin. Continue Rocephin 2gm (2) Anemia: Code(s): D64.9 - Anemia, unspecified Status: Acute Assessment and Plan: Patient does not have chronic anemia. Hemoglobin on admission was normal. Hemoglobin dropped from 12.8 to 9.6 in 24hrs. Hgb stable on repeat in the 10 range. She did pass a large dark stool and octreotide was started. EGD - showing gastritis, gastric ulcer and hiatal hernia. Octreotide was stopped. Continue PPI. Monitor HH (3) Conjugated hyperbilirubinemia: Code(s): E80.6 - Other disorders of bilirubin metabolism Status: Acute Assessment and Plan: Elevated LFTs present on admission. Likely secondary to underlying liver disease worsened by her bacteremia and UTI. She does have cirrhosis to suggest a more acute on chronic issue. AST/ALT better. Bili remains unchanged at 33 (Direct at 19). Last BM 04/10. Hepatitis panel negative. INR at 2.4 related to her cirrhosis. Ammonia level 20. Follow. Appreciate GI input. (4) Abdominal pain: Code(s): R10.9 - Unspecified abdominal pain Status: Acute Assessment and Plan: CT A/P showing gastritis, inflammatory changes in the nayeli hepatis, cirrhosis and AAA. Likely related to liver disease. Possibly related to gastritis and gastric ulcer. No significant ascites to suggest SBP. Continue IV antibiotics. Continue to monitor. (5) Diabetes mellitus: Code(s): E11.9 - Type 2 diabetes mellitus without complications Status: Acute Assessment and Plan: A1c 12.4. THis is a new diagnosis for this patient. She is not on anti hyperglycemic medications. The patient's blood glucose was reviewed on 04/12 Glucose poorly controlled. Start AccuCheks covering with sliding scale. Hypoglycemia protocol sharon be available as needed. Add Lantus (6) Cirrhosis: Code(s): K74.60 - Unspecified cirrhosis of liver Status: Acute Assessment and Plan: As above (7) Thrombocytopenia: Code(s): D69.6 - Thrombocytopenia, unspecified Status: Acute Assessment and Plan: Patient with chronic thrombocytopenia probably related to cirrhosis. Platelet count 114 K on admission and trended downward to 55K related to sepsis. Better at 62K now. Continue to follow. Transfuse as necessary. (8) Chronic pain syndrome: Code(s): G89.4 - Chronic pain syndrome Status: Acute Assessment and Plan: Holding p.o. pain medication due to altered mental status. (9) Generalized weakness: Code(s): R53.1 - Weakness Status: Acute Assessment and Plan: likely secondary to chronic illness and deconditioning. Continue PT and OT. (10) CLL (chronic lymphocytic leukemia): Code(s): C91.10 - Chronic lymphocytic leukemia of B-cell type not having achieved remission Status: Acute Assessment and Plan: Stable. In remission (11) Hyponatremia: Code(s): E87.1 - Hypo-osmolality and hyponatremia Status: Acute Assessment and Plan: Resolved (12) Ascending cholangitis: Code(s): K83.09 - Other cholangitis Status: Acute Assessment and Plan: MRCP noted. No obstruction noted. Common bile duct is normal size. Cholangitis ruled out. As above. Appreciate GI input. Subjective Date/time seen: 04/12/22 09:58 Interval history: 77yo female with history for CLL (in remission), status post
[2022-04-12] MEDS: PANTOPRAZOLE SODIUM IV 40 MG VIAL IV PUSH ×2 (10:01→20:25)
[2022-04-12] MEDS: CHOLESTYRAMINE (W/ SUGAR) 4 GM POWD.PACK PO ×3 (10:01→17:03)
[2022-04-12] MEDS: INSULIN ASPART (*BKC) 100 UNITS/ML SUB-Q ×2 (10:01→11:52)
[2022-04-12] MEDS: POTASSIUM CHLORIDE 20 MEQ TABLET PO (10:02)
[2022-04-12 10:31] LABS: Lipase 322 U/L (23-300)
--- NOTE | 2022-04-12 10:36 | WPDANESPN ---
Anes - Prog Note Post-Op Date/Time: 04/12/22 09:46 Cardiovascular status: normal Respiratory status: normal Airway patency: baseline Mental status: baseline Post-Op hydration status: normal Vital Signs: Last Vital Signs Temp 97.8 F 04/12/22 05:44 Pulse 65 04/12/22 05:44 Resp 18 04/12/22 05:44 BP 150/57 H 04/12/22 05:44 Pulse Ox 97 04/12/22 05:44 O2 Del Method Room Air 04/11/22 12:03 Pain Score (VAS): 0 I/O: Intake & Output 04/11/22 04/12/22 04/12/22 23:59 07:59 15:59 Intake Total 240 200 Balance 240 200 Laboratory Tests 04/12/22 06:00 04/12/22 06:00 04/12/22 04/12/22 04/12/22 05:58 05:58 06:00 WBC 10.7 H RBC 3.07 L Hgb 10.5 L Hct 31.1 L MCV 101.3 H MCH 34.2 H MCHC 33.8 RDW 20.4 H Plt Count 62 L MPV 11.5 H Immature Gran % (Auto) 0.9 H Neut % (Auto) 82.5 H Lymph % (Auto) 8.1 L Andrew % (Auto) 7.8 Eos % (Auto) 0.6 Baso % (Auto) 0.1 L Lymph # (Auto) 0.87 L Andrew # (Auto) 0.8 H Eos # (Auto) 0.1 Baso # (Auto) 0.0 Abs Immat Gran (auto) 0.10 H Absolute Neuts (auto) 8.8 H Absolute Nucleated RBC 0.0 Nucleated RBC % 0.0 Platelet Estimate Decreased % Immature Plt Fraction 5.4 Hypochromasia 1+ Target Cells 2+ Schistocytes None seen Sodium Potassium Chloride Carbon Dioxide Anion Gap BUN Creatinine Estim Creat Clear Calc Estimated GFR Glucose POC Capillary Glucose Hemoglobin A1c 12.4 H Calcium Total Bilirubin Indirect Bilirubin AST ALT Alkaline Phosphatase Total Protein Albumin Lipase 322 H 04/12/22 04/12/22 06:00 08:12 WBC RBC Hgb Hct MCV MCH MCHC RDW Plt Count MPV Immature Gran % (Auto) Neut % (Auto) Lymph % (Auto) Andrew % (Auto) Eos % (Auto) Baso % (Auto) Lymph # (Auto) Andrew # (Auto) Eos # (Auto) Baso # (Auto) Abs Immat Gran (auto) Absolute Neuts (auto) Absolute Nucleated RBC Nucleated RBC % Platelet Estimate % Immature Plt Fraction Hypochromasia Target Cells Schistocytes Sodium 134 L Potassium 3.3 L Chloride 104 Carbon Dioxide 24 Anion Gap 6 L BUN 25 H Creatinine 0.90 Estim Creat Clear Calc 48 Estimated GFR > 60 Glucose 223 H POC Capillary Glucose 266 H Hemoglobin A1c Calcium 8.5 Total Bilirubin 33.7 H Indirect Bilirubin 5.3 H AST 142 H ALT 130 H Alkaline Phosphatase 137 H Total Protein 6.0 L Albumin 3.2 L Lipase Microbiology 04/08/22 21:19 Blood Blood Culture - Preliminary Escherichia Coli Patient Feedback: Patient satisfied with anesthetic care.
[2022-04-12] MEDS: INSULIN GLARGINE (*BKC) 100 UNITS/ML 12 UNITS SUB-Q (11:52)
[2022-04-12 12:25] LABS: Glucose Point of Care 244 mg/dl (65-105)
--- NOTE | 2022-04-12 13:44 | PCOTNOTE ---
Attempted to see for occupational therapy evaluation. Pt. refused at this time. Pt. stated she would participate tomorrow. Nursing updated.
[2022-04-12 14:00] VITALS: BP 117/50; PULSE 61; RESP 118; TEMP 37.2; O2SAT 96
--- NOTE | 2022-04-12 14:05 | WPDGIPROGNO ---
Progress Note: A&P Assessment and Plan (1) Cirrhosis: Code(s): K74.60 - Unspecified cirrhosis of liver Status: Acute Assessment and Plan: new diagnosis, work up in progress on admission with high MELD score but also had sepsis with bacteremia, will recheck INR tomorrow will need follow-up with hepatology (2) Gastric ulcer: Code(s): K25.9 - Gastric ulcer, unspecified as acute or chronic, without hemorrhage or perforation Status: Acute Assessment and Plan: had melena, EGD yesterday with large but no more bleeding h/h stable now iv protonix bid she is eating more (3) Melena: Code(s): K92.1 - Melena Status: Acute (4) Acute blood loss anemia: Code(s): D62 - Acute posthemorrhagic anemia Status: Acute Assessment and Plan: stable (5) Sepsis: Code(s): A41.9 - Sepsis, unspecified organism Status: Acute Assessment and Plan: on iv abx (6) E coli bacteremia: Code(s): R78.81 - Bacteremia; B96.20 - Unspecified Escherichia coli [E. coli] as the cause of diseases classified elsewhere Status: Acute Assessment and Plan: source probably (also had positive urine culture) mrcp without stones and had normal bile duct size (7) Thrombocytopenia: Code(s): D69.6 - Thrombocytopenia, unspecified Status: Acute Assessment and Plan: probably from cirrhosis Subjective Date/time seen: 04/12/22 14:05 Interval history: she says that overall feeling better, more appetite and less discomfort, no more melena. EGD found large non-bleeding gastric ulcer Review of Systems Review of Systems: All systems reviewed & are unremarkable except as noted in HPI and below Exam Const: General: comfortable, ill appearing chronically and average body habitus Orientation/consciousness: patient oriented x3 and patient obtunded HENMT: Head: normal to inspection, normocephalic and atraumatic Ears: hearing grossly normal bilaterally Eyes: General: appearance normal, both eyes and all related structures Sclera: scleral abnormality bilateral ( icterus) EOM: EOMs intact bilaterally Neck: Neck: full ROM and no lymphadenopathy Resp: Effort & Inspection: normal respiratory effort and able to speak in complete sentences Auscultation: clear to auscultation bilaterally Cardio: Jugular venous distension: no JVD Rate: regular rate Rhythm: regular rhythm GI: Inspection: distended GI Palp: Yes Soft to palpation, No Firmness to palpation present (GI) and No Guarding due to palpation present (GI) Auscultation: normal bowel sounds Other: less tender today Skin: General skin exam: jaundice Neuro: General: patient oriented x3 and CN's II-XI intact bilaterally Speech: normal speech Motor exam (neuro): 5/5 motor strength present throughout Extrem: General: edema bilateral ( lower extremities) Psych: Mental Status: mental status grossly normal Objective Data Vital Signs Vital Signs: Vital Signs - 24 hr 04/11/22 20:13 04/12/22 05:44 04/12/22 10:00 Temperature 98.4 F 97.8 F Pulse Rate 67 65 Respiratory Rate 18 18 Blood Pressure 143/56 H 150/57 H Pulse Oximetry 97 97 Oxygen Delivery Room Air Intake/Output Intake/Output: Intake & Output 04/09/22 04/10/22 04/11/22 04/12/22 23:59 23:59 23:59 23:59 Intake Total 2670 1320 880 440 Output Total 200 Balance 2470 1320 880 440 Meds/Results Medications: Active Medications Generic Name Dose Route Start Last Admin Trade Name Freq PRN Reason Stop Dose Admin Cholestyramine Resin 4 gm 04/09/22 10:00 04/12/22 10:01 Cholestyramine (W/ Sugar) 4 Gm Powd.Pack PO 4 gm 1000,1400,1800 JORDAN Administration Dextrose 12.5 gm 04/12/22 07:49 Dextrose 50% 25 Gm/50 Ml Syringe IV PUSH PRN PRN Hypoglycemia Protocol Glucagon 1 mg 04/12/22 07:49 Glucagon For Inj 1 Mg Vial IM PRN PRN Hypoglycemia Protocol Glucose 15 gm
[2022-04-12] MEDS: cefTRIAXone 2 GM in SODIUM CHLORIDE 0.9% IV 100 ML 200 ML IVPB (14:27)
[2022-04-12 17:11] LABS: Glucose Point of Care 126 mg/dl (65-105)
[2022-04-12 20:00] VITALS: PULSE 61; RESP 18; O2SAT 96
[2022-04-12 20:17] LABS: Glucose Point of Care 180 mg/dl (65-105)
[2022-04-12 22:00] VITALS: BP 121/46; PULSE 64; RESP 18; TEMP 35.7; O2SAT 95
[2022-04-13 07:10] LABS: Basophils Percent Auto 0.2 % (0.2-1.2); Eosinophils Absolute Auto 0.1 K/mm3 (0-0.3); Eosinophils Percent Auto 0.6 % (0-4.4); Hemoglobin 10.4 g/dL (12.0-15.0); Immature Granulocyte Absolute 0.09 K/mm3 (0.00-0.031); Immature Granulocyte Percent A 0.9 % (0-0.5); Immature Platelet Fraction Pct 5.2 % (0.9-11.2); Lymphocytes Absolute Auto 1.28 K/mm3 (0.9-3.2); Lymphocytes Percent Auto 13.2 % (18.3-44.2); Mean Corpuscular HGB Conc 34.7 g/dl (32-36); Mean Platelet Volume 12.4 fl (7.4-10.4); Monocytes Absolute Auto 0.9 K/mm3 (0.1-0.6); Monocytes Percent Auto 9.7 % (2.6-8.5); Neutrophils Absolute Auto 7.3 K/mm3 (1.3-6.7); Neutrophils Percent Auto 75.4 % (45.5-73.1); Platelet Count Result 67 k/mm3 (150-375); Red Blood Count 2.97 M/mm3 (4.2-5.4); Red Cell Distribution Width 20.2 % (11.5-14.5); White Blood Count 9.7 K/mm3 (4.5-10.0)
[2022-04-13 07:24] LABS: Alanine Aminotransferase 133 U/L (6-35); Albumin Level 2.9 g/dL (3.5-5.1); Alkaline Phosphatase 150 U/L (38-126); Anion Gap 4 mmol/L (8-16); Aspartate Amino Transferase 141 U/L (14-36); Blood Urea Nitrogen 20 mg/dL (7-17); Calcium 8.2 mg/dL (8.4-10.2); Carbon Dioxide 25 mmol/L (22-30); Chloride 110 mmol/L (98-107); Estimated CRCL calculation 54 ml/min; Estimated Glomerular Filt Rate > 60; Glucose 105 mg/dL (65-110); Magnesium 1.8 mg/dL (1.6-2.3); Phosphorus 2.1 mg/dL (2.5-4.5); Potassium 3.3 mmol/L (3.4-5.0); Sodium 139 mmol/L (137-145)
[2022-04-13 07:26] LABS: Bilirubin,Total 35.3 mg/dL (0.2-1.3)
[2022-04-13 07:27] LABS: Platelet Estimate Decreased (Adequate)
[2022-04-13 07:31] LABS: Schistocytes Rare (NORMAL); Target Cells 2+ (NORMAL)
[2022-04-13 07:32] LABS: Hypochromasia 2+ (NORMAL); Polychromasia 1+ (NORMAL)
[2022-04-13 07:51] LABS: INR 2.1
[2022-04-13 08:15] LABS: Partial Thromboplastin Time 39.1 SECONDS (22.3-36.8)
[2022-04-13] MEDS: POTASSIUM/PHOSPHORUS/SODIUM 1.5 GM PACKET 1 PACKET PO (08:45)
[2022-04-13] MEDS: PANTOPRAZOLE SODIUM IV 40 MG VIAL IV PUSH ×2 (08:45→20:25)
[2022-04-13] MEDS: CHOLESTYRAMINE (W/ SUGAR) 4 GM POWD.PACK PO ×3 (08:47→17:41)
[2022-04-13 10:21] LABS: Glucose Point of Care 94 mg/dl (65-105)
[2022-04-13 10:56] LABS: Ceruloplasmin 17 mg/dL (18-53)
--- NOTE | 2022-04-13 11:17 | WPDGIPROGNO ---
Progress Note: A&P Assessment and Plan (1) Gastric ulcer: Code(s): K25.9 - Gastric ulcer, unspecified as acute or chronic, without hemorrhage or perforation Status: Acute Assessment and Plan: Gastric ulcer identified by endoscopy 2 days ago. Patient had melena at that time. No significant bleeding subsequently. Plan to avoid NSAIDs. Ppi acid suppression in progress. Would should continue this ferry terminal agent. (2) Cirrhosis: Code(s): K74.60 - Unspecified cirrhosis of liver Status: Acute Assessment and Plan: Patient with rather significant liver dysfunction. Underlying cirrhosis of uncertain etiology. Patient ultimately will require follow-up with hepatology service at [facility]. Continue supportive care for now. Protime significantly prolonged. This emphasizes this significant severe cirrhosis and liver dysfunction this patient. She has a relatively high MELD score presently. (3) Thrombocytopenia: Code(s): D69.6 - Thrombocytopenia, unspecified Status: Acute Assessment and Plan: Thrombocytopenia peers to be on the basis of cirrhosis. (4) Diabetes mellitus: Code(s): E11.9 - Type 2 diabetes mellitus without complications Status: Acute Subjective Date/time seen: 04/13/22 11:17 Patient is seen today in the and since Dr. Santiago. She is alert comfortable at bed rest. Complains of some back pain. Currently tolerating diet without difficulty. Review of Systems Review of Systems: Review of systems noncontributory. Exam Narrative: Physical exam reveals patient be alert lying in bed. Comfortable at rest. HEENT exam reveals marked icterus. Lungs are clear. Heart without murmur. Abdomen bowel sounds present soft with no localized tenderness evident. Extremities are without clubbing cyanosis or edema. Objective Data Vital Signs Vital Signs: Vital Signs - 24 hr 04/12/22 14:00 04/12/22 20:00 04/12/22 22:00 Temperature 98.9 F 96.3 F L Pulse Rate 61 61 64 Respiratory Rate 118 H 18 18 Blood Pressure 117/50 L 121/46 L Pulse Oximetry 96 96 95 Oxygen Delivery Room Air 04/13/22 09:59 04/13/22 10:28 Temperature Pulse Rate Respiratory Rate Blood Pressure Pulse Oximetry Oxygen Delivery Room Air Room Air Intake/Output Intake/Output: Intake & Output 04/10/22 04/11/22 04/12/22 04/13/22 23:59 23:59 23:59 23:59 Intake Total 1320 880 900 240 Balance 1320 880 900 240 Meds/Results Medications: Active Medications Generic Name Dose Route Start Last Admin Trade Name Freq PRN Reason Stop Dose Admin Cholestyramine Resin 4 gm 04/09/22 10:00 04/13/22 08:47 Cholestyramine (W/ Sugar) 4 Gm Powd.Pack PO 4 gm 1000,1400,1800 JORDAN Administration Dextrose 12.5 gm 04/12/22 07:49 Dextrose 50% 25 Gm/50 Ml Syringe IV PUSH PRN PRN Hypoglycemia Protocol Glucagon 1 mg 04/12/22 07:49 Glucagon For Inj 1 Mg Vial IM PRN PRN Hypoglycemia Protocol Glucose 15 gm 04/12/22 07:49 Glucose Oral Gel 15 Gm Of Glucse In 37.5 Gm Tube PO PRN PRN Hypoglycemia Protocol Ceftriaxone Sodium 2 gm/ 100 mls @ 200 mls/hr 04/11/22 13:00 04/12/22 14:57 Sodium Chloride IVPB Infused Q24H JORDAN Infusion Dextrose 1,000 mls @ 100 mls/hr 04/12/22 07:49 Dextrose 5% 1,000 Ml IVPB PRN PRN Hypoglycemia Protocol Insulin Aspart 3 - 6 units 04/12/22 08:00 04/13/22 08:44 Insulin Aspart (*Bkc) 100 Units/Ml SUB-Q Not Given TIDWM [facility] Protocol Insulin Glargine 12 units 04/12/22 10:10 04/13/22 08:45 Insulin Glargine (*Bkc) 100 Units/Ml 0.15 units/kg (12 units) Not Given SUB-Q QAM [facility] Ondansetron HCl 4 mg 04/08/22 20:21 Ondansetron Inj 4 Mg/2 Ml Vial IV PUSH Q4H PRN Nausea Pantoprazole Sodium 40 mg 04/09/22 09:00 04/13/22 08:45 Pantoprazole Sodium Iv 40 Mg Vial IV PUSH 40 mg Q12HR [facility] Administrat
[2022-04-13 13:26] LABS: Glucose Point of Care 196 mg/dl (65-105)
[2022-04-13] MEDS: cefTRIAXone 2 GM in SODIUM CHLORIDE 0.9% IV 100 ML 200 ML IVPB (14:39)
[2022-04-13 15:18] VITALS: BP 115/48; PULSE 60; RESP 16; TEMP 36.2; O2SAT 97
--- NOTE | 2022-04-13 15:46 | PM.IMPN ---
Progress Note: A&P Assessment and Plan (1) Sepsis: Code(s): A41.9 - Sepsis, unspecified organism Status: Acute Assessment and Plan: Sepsis present on admission lactic acidosis and leukocytosis and now with positive blood cultures. [place] to be related to UTI as the source of the bacteremia. MRCP is not consistent with ascending cholangitis although she may have passed a stone or sludge with resolution of the obstruction. Sepsis symptoms improving. WBC normal now. UCx and BCx growing EColi sensitive to Rocephin. Continue Rocephin 2gm (2) Anemia: Code(s): D64.9 - Anemia, unspecified Status: Acute Assessment and Plan: Patient does not have chronic anemia. Hemoglobin on admission was normal. Hemoglobin dropped from 12.8 to 9.6 in 24hrs. Hgb stable on repeat in the 10 range. She did pass a large dark stool and octreotide was started. EGD - showing gastritis, gastric ulcer and hiatal hernia. Octreotide was stopped. Continue PPI. Monitor HH (3) Gastric ulcer: Code(s): K25.9 - Gastric ulcer, unspecified as acute or chronic, without hemorrhage or perforation Status: Acute Assessment and Plan: As above. COntinue PPI treatment (4) UTI (urinary tract infection): Code(s): N39.0 - Urinary tract infection, site not specified Status: Acute Assessment and Plan: As above. Continue IV abx (5) Conjugated hyperbilirubinemia: Code(s): E80.6 - Other disorders of bilirubin metabolism Status: Acute Assessment and Plan: Elevated LFTs present on admission. Likely secondary to underlying liver disease worsened by her bacteremia and UTI. She does have cirrhosis to suggest a more acute on chronic issue. AST/ALT better. Bili climbing to 35 now (Direct at 19). Now having diarrhea but this is more chronic. Hepatitis panel negative. INR at 2.4 related to her cirrhosis. Ammonia level 20. Follow. Appreciate GI input. (6) Abdominal pain: Code(s): R10.9 - Unspecified abdominal pain Status: Acute Assessment and Plan: CT A/P showing gastritis, inflammatory changes in the nayeli hepatis, cirrhosis and AAA. Likely related to liver disease and inflammation. Possibly related to gastritis and gastric ulcer. No significant ascites to suggest SBP. Continue IV antibiotics. Continue to monitor. (7) Diabetes mellitus: Code(s): E11.9 - Type 2 diabetes mellitus without complications Status: Acute Assessment and Plan: A1c 12.4. THis is a new diagnosis for this patient. She is not on anti hyperglycemic medications. The patient's blood glucose was reviewed on 04/13 Glucose better controlled. Start AccuCheks covering with sliding scale. Hypoglycemia protocol sharon be available as needed. Stop Lantus (8) Cirrhosis: Code(s): K74.60 - Unspecified cirrhosis of liver Status: Acute Assessment and Plan: Etilogy unclear. This is a new diagnosis. Workup in progress. As above (9) Thrombocytopenia: Code(s): D69.6 - Thrombocytopenia, unspecified Status: Acute Assessment and Plan: Patient with chronic thrombocytopenia probably related to cirrhosis. Platelet count 114 K on admission and trended downward to 55K related to sepsis. Better at 67K now. Continue to follow. Transfuse as necessary. (10) Chronic pain syndrome: Code(s): G89.4 - Chronic pain syndrome Status: Acute Assessment and Plan: Pain stable. Hold oral narcotics for now. (11) Generalized weakness: Code(s): R53.1 - Weakness Status: Acute Assessment and Plan: likely secondary to chronic illness and deconditioning. Continue PT and OT. (12) CLL (chronic lymphocytic leukemia): Code(s): C91.10 - Chronic lymphocytic leukemia of B-cell type not having achieved remission Status: Acute Assessment and Plan: Stable. In remission (13) Hyponatremia: Code(s): E
[2022-04-13 17:48] LABS: Glucose Point of Care 168 mg/dl (65-105)
[2022-04-13 20:06] VITALS: BP 147/49; PULSE 74; RESP 18; TEMP 36.1; O2SAT 97
[2022-04-13 21:09] LABS: Glucose Point of Care 232 mg/dl (65-105)
[2022-04-14 04:09] VITALS: BP 134/48; PULSE 61; RESP 20; TEMP 36.8; O2SAT 94
[2022-04-14 06:13] LABS: Basophils Percent Auto 0.2 % (0.2-1.2); Eosinophils Absolute Auto 0.1 K/mm3 (0-0.3); Eosinophils Percent Auto 0.7 % (0-4.4); Hematocrit 31.6 % (37.0-47.0); Hemoglobin 10.6 g/dL (12.0-15.0); Immature Granulocyte Absolute 0.11 K/mm3 (0.00-0.031); Immature Granulocyte Percent A 1.3 % (0-0.5); Immature Platelet Fraction Pct 4.9 % (0.9-11.2); Lymphocytes Absolute Auto 1.33 K/mm3 (0.9-3.2); Lymphocytes Percent Auto 15.8 % (18.3-44.2); Mean Corpuscular HGB Conc 33.5 g/dl (32-36); Mean Corpuscular Hemoglobin 33.9 pg (26-34); Mean Platelet Volume 10.9 fl (7.4-10.4); Monocytes Absolute Auto 0.9 K/mm3 (0.1-0.6); Monocytes Percent Auto 10.8 % (2.6-8.5); Neutrophils Percent Auto 71.2 % (45.5-73.1); Platelet Count Result 62 k/mm3 (150-375); Red Blood Count 3.13 M/mm3 (4.2-5.4); Red Cell Distribution Width 20.7 % (11.5-14.5); White Blood Count 8.4 K/mm3 (4.5-10.0)
[2022-04-14 06:23] LABS: INR 2.2; Prothrombin Time 23.6 Seconds (11.1-14.7)
[2022-04-14 06:44] LABS: Crenated RBC 1+ (NORMAL); Ovalocytes 1+ (NORMAL); Platelet Estimate Decreased (Adequate); Target Cells 2+ (NORMAL); Tear Drop Cells 1+ (NORMAL)
[2022-04-14 06:45] LABS: Schistocytes Rare (NORMAL)
[2022-04-14 07:02] LABS: Alanine Aminotransferase 129 U/L (6-35); Albumin Level 2.8 g/dL (3.5-5.1); Alkaline Phosphatase 166 U/L (38-126); Anion Gap 4 mmol/L (8-16); Aspartate Amino Transferase 126 U/L (14-36); Bilirubin,Total 36.4 mg/dL (0.2-1.3); Blood Urea Nitrogen 17 mg/dL (7-17); Calcium 8.2 mg/dL (8.4-10.2); Carbon Dioxide 22 mmol/L (22-30); Chloride 112 mmol/L (98-107); Estimated CRCL calculation 61 ml/min; Estimated Glomerular Filt Rate > 60; Glucose 134 mg/dL (65-110); Magnesium 1.6 mg/dL (1.6-2.3); Sodium 138 mmol/L (137-145)
[2022-04-14 10:32] LABS: Glucose Point of Care 101 mg/dl (65-105)
[2022-04-14] MEDS: POTASSIUM/PHOSPHORUS/SODIUM 1.5 GM PACKET 1 PACKET PO (10:40)
[2022-04-14] MEDS: PANTOPRAZOLE SODIUM IV 40 MG VIAL IV PUSH ×2 (10:40→20:40)
[2022-04-14] MEDS: CHOLESTYRAMINE (W/ SUGAR) 4 GM POWD.PACK PO ×3 (10:40→20:40)
[2022-04-14] MEDS: POTASSIUM CHLORIDE 20 MEQ TABLET PO (10:41)
--- NOTE | 2022-04-14 11:29 | WPDGIPROGNO ---
Progress Note: A&P Assessment and Plan (1) Gastric ulcer: Code(s): K25.9 - Gastric ulcer, unspecified as acute or chronic, without hemorrhage or perforation Status: Acute Assessment and Plan: Patient recently found to have a gastric ulcer. No significant additional bleeding. Plan to keep patient on proton pump inhibitor long-term. Avoid NSAIDs. (2) Cirrhosis: Code(s): K74.60 - Unspecified cirrhosis of liver Status: Acute Assessment and Plan: Patient with rather significant cirrhosis identified at time of admission. Etiology somewhat unclear. Patient with significant underlying liver dysfunction at present. Supportive care suggested at this point. At some point follow-up with chemical process equipment operator tertiary [facility] strongly encouraged. (3) UTI (urinary tract infection): Code(s): N39.0 - Urinary tract infection, site not specified Status: Acute (4) E coli bacteremia: Code(s): R78.81 - Bacteremia; B96.20 - Unspecified Escherichia coli [E. coli] as the cause of diseases classified elsewhere Status: Acute Assessment and Plan: Patient felt have E coli sepsis. Continue supportive care and antibiotics. (5) CLL (chronic lymphocytic leukemia): Code(s): C91.10 - Chronic lymphocytic leukemia of B-cell type not having achieved remission Status: Acute (6) Chronic diarrhea: Code(s): K52.9 - Noninfective gastroenteritis and colitis, unspecified Status: Acute Assessment and Plan: Diarrhea is chronic. Continue monitor for fluid status. Subjective Date/time seen: 04/14/22 11:29 Patient remains somewhat weak. History of total colectomy for diarrhea. Has a history of CLL. Found to have cirrhosis on presentation to the hospital. Currently being treated for sepsis. Review of Systems Review of Systems: Review of systems noncontributory. Exam Narrative: Physical exam reveals patient be alert. Vital signs stable. Currently afebrile. Significant icterus noted. Lungs with few rhonchi.. Heart without murmur Abdomen soft with no significant organomegaly. Objective Data Vital Signs Vital Signs: Vital Signs - 24 hr 04/13/22 15:18 04/13/22 20:06 04/14/22 04:09 Temperature 97.1 F L 97 F L 98.2 F Pulse Rate 60 74 61 Respiratory Rate 16 18 20 Blood Pressure 115/48 L 147/49 H 134/48 L Pulse Oximetry 97 97 94 Intake/Output Intake/Output: Intake & Output 04/11/22 04/12/22 04/13/22 04/14/22 23:59 23:59 23:59 23:59 Intake Total 880 900 580 100 Balance 880 900 580 100 Meds/Results Medications: Active Medications Generic Name Dose Route Start Last Admin Trade Name Freq PRN Reason Stop Dose Admin Cholestyramine Resin 4 gm 04/14/22 08:00 04/14/22 10:40 Cholestyramine (W/ Sugar) 4 Gm Powd.Pack PO 4 gm Q6H JORDAN Administration Dextrose 12.5 gm 04/12/22 07:49 Dextrose 50% 25 Gm/50 Ml Syringe IV PUSH PRN PRN Hypoglycemia Protocol Glucagon 1 mg 04/12/22 07:49 Glucagon For Inj 1 Mg Vial IM PRN PRN Hypoglycemia Protocol Glucose 15 gm 04/12/22 07:49 Glucose Oral Gel 15 Gm Of Glucse In 37.5 Gm Tube PO PRN PRN Hypoglycemia Protocol Ceftriaxone Sodium 2 gm/ 100 mls @ 200 mls/hr 04/11/22 13:00 04/13/22 15:09 Sodium Chloride IVPB Infused Q24H JORDAN Infusion Dextrose 1,000 mls @ 100 mls/hr 04/12/22 07:49 Dextrose 5% 1,000 Ml IVPB PRN PRN Hypoglycemia Protocol Insulin Aspart 3 - 6 units 04/12/22 08:00 04/14/22 10:32 Insulin Aspart (*Bkc) 100 Units/Ml SUB-Q Not Given TIDWM [facility] Protocol Loperamide HCl 2 mg 04/13/22 15:59 Loperamide Hcl 2 Mg Capsule PO PRN PRN Diarrhea Ondansetron HCl 4 mg 04/08/22 20:21 Ondansetron Inj 4 Mg/2 Ml Vial IV PUSH Q4H PRN Nausea Pantoprazole Sodium 40 mg 04/09/22 09:00 04/14/22 10:40 Pantoprazole Sodium Iv 40 Mg Vial IV PUSH 40 mg
[2022-04-14 12:56] LABS: Glucose Point of Care 150 mg/dl (65-105)
[2022-04-14 13:54] VITALS: BP 112/47; PULSE 63; RESP 16; TEMP 36.4; O2SAT 95
[2022-04-14] MEDS: cefTRIAXone 2 GM in SODIUM CHLORIDE 0.9% IV 100 ML 200 ML IVPB (14:07)
--- NOTE | 2022-04-14 16:55 | PM.IMPN ---
Progress Note: A&P Assessment and Plan (1) Sepsis: Code(s): A41.9 - Sepsis, unspecified organism Status: Acute Assessment and Plan: Sepsis present on admission with lactic acidosis and leukocytosis and now with positive blood cultures. [place] to be related to UTI as the source of the bacteremia. MRCP is not consistent with ascending cholangitis although she may have passed a stone or sludge with resolution of the obstruction. Sepsis symptoms improving. WBC normal now. UCx and BCx growing EColi sensitive to Rocephin. Continue Rocephin 2gm (2) Anemia: Code(s): D64.9 - Anemia, unspecified Status: Acute Assessment and Plan: Patient does not have chronic anemia. Hemoglobin on admission was normal. Hemoglobin dropped from 9.6 but stable on repeat in the 10 range now. She did pass a large dark stool and octreotide was started. EGD 04/11 showed gastritis, gastric ulcer and hiatal hernia. Octreotide was stopped. Continue PPI. Monitor HH (3) Gastric ulcer: Code(s): K25.9 - Gastric ulcer, unspecified as acute or chronic, without hemorrhage or perforation Status: Acute Assessment and Plan: As above. Continue PPI treatment (4) UTI (urinary tract infection): Code(s): N39.0 - Urinary tract infection, site not specified Status: Acute Assessment and Plan: As above. Continue IV abx (5) Conjugated hyperbilirubinemia: Code(s): E80.6 - Other disorders of bilirubin metabolism Status: Acute Assessment and Plan: Elevated LFTs present on admission. Likely secondary to underlying liver disease worsened by her bacteremia and UTI. She does have cirrhosis to suggest a more acute on chronic issue. Old CT scan in 2014 showing hepatic steatosis. AST/ALT better but Bili climbing to 36 now (Direct at 19). Hepatitis panel negative. INR elevated related to her cirrhosis. Ammonia level 20. Continue Questran and increase frequency to 16gm/day. Repeat MRCP but again showing no obstructive process. Follow. Appreciate GI input. (6) Abdominal pain: Code(s): R10.9 - Unspecified abdominal pain Status: Acute Assessment and Plan: CT A/P showing gastritis, inflammatory changes in the nayeli hepatis, cirrhosis and AAA. Likely related to liver disease and inflammation. Possibly related to gastritis and gastric ulcer. No significant ascites to suggest SBP. Continue IV antibiotics. Continue to monitor. (7) Diabetes mellitus: Code(s): E11.9 - Type 2 diabetes mellitus without complications Status: Acute Assessment and Plan: A1c 12.4. THis is a new diagnosis for this patient. She is not on anti hyperglycemic medications. The patient's blood glucose was reviewed on 04/14 Glucose well controlled. Start AccuCheks covering with sliding scale. Hypoglycemia protocol will be available as needed. Continue to monitor. (8) Cirrhosis: Code(s): K74.60 - Unspecified cirrhosis of liver Status: Acute Assessment and Plan: Etiology unclear but a CT in 2014 showed hepatic steatosis. Cirrhosis is a new diagnosis. Workup in progress. She appears fluid overloaded. Will start low-dose Lasix. Consider spironolactone. As above (9) Thrombocytopenia: Code(s): D69.6 - Thrombocytopenia, unspecified Status: Acute Assessment and Plan: Patient with chronic thrombocytopenia probably related to cirrhosis. Platelet count 114 K on admission and trended downward to 55K related to sepsis. Platelet count stable. Continue to follow. Transfuse as necessary. (10) Chronic pain syndrome: Code(s): G89.4 - Chronic pain syndrome Status: Acute Assessment and Plan: Pain stable. Continue to hold oral narcotics for now. (11) Generalized weakness: Code(s): R53.1 - Weakness Status: Acute Assessment and Plan: Secondary to chronic illness and deconditioning. Continue PT and OT.
[2022-04-14] MEDS: FUROSEMIDE 20 MG TABLET PO (17:40)
[2022-04-14 17:59] LABS: Glucose Point of Care 169 mg/dl (65-105)
[2022-04-14 20:00] VITALS: PULSE 63; RESP 16; O2SAT 95
[2022-04-14 20:15] LABS: Glucose Point of Care 231 mg/dl (65-105)
[2022-04-14 22:00] VITALS: BP 114/48; PULSE 64; RESP 18; TEMP 36.4; O2SAT 96
[2022-04-15] MEDS: CHOLESTYRAMINE (W/ SUGAR) 4 GM POWD.PACK PO ×4 (02:12→20:37)
[2022-04-15 05:57] LABS: Glucose Point of Care 123 mg/dl (65-105)
[2022-04-15 06:00] VITALS: BP 112/49; PULSE 62; RESP 18; TEMP 36.4; O2SAT 96
[2022-04-15 06:12] LABS: Alanine Aminotransferase 135 U/L (6-35); Albumin Level 2.9 g/dL (3.5-5.1); Alkaline Phosphatase 191 U/L (38-126); Anion Gap 6 mmol/L (8-16); Aspartate Amino Transferase 135 U/L (14-36); Blood Urea Nitrogen 15 mg/dL (7-17); Calcium 8.3 mg/dL (8.4-10.2); Carbon Dioxide 22 mmol/L (22-30); Chloride 114 mmol/L (98-107); Estimated CRCL calculation 61 ml/min; Estimated Glomerular Filt Rate > 60; Glucose 122 mg/dL (65-110); Magnesium 1.6 mg/dL (1.6-2.3); Phosphorus 2.2 mg/dL (2.5-4.5); Potassium 3.4 mmol/L (3.4-5.0); Sodium 142 mmol/L (137-145)
[2022-04-15 06:15] LABS: Basophils Percent Auto 0.2 % (0.2-1.2); Eosinophils Absolute Auto 0.1 K/mm3 (0-0.3); Eosinophils Percent Auto 0.7 % (0-4.4); Hematocrit 33.4 % (37.0-47.0); Hemoglobin 11.4 g/dL (12.0-15.0); Immature Granulocyte Absolute 0.13 K/mm3 (0.00-0.031); Immature Granulocyte Percent A 1.2 % (0-0.5); Immature Platelet Fraction Pct 4.8 % (0.9-11.2); Lymphocytes Absolute Auto 1.64 K/mm3 (0.9-3.2); Lymphocytes Percent Auto 15.3 % (18.3-44.2); Mean Corpuscular HGB Conc 34.1 g/dl (32-36); Mean Corpuscular Volume 102.5 fl (80-100); Mean Platelet Volume 11.4 fl (7.4-10.4); Monocytes Absolute Auto 0.9 K/mm3 (0.1-0.6); Monocytes Percent Auto 8.4 % (2.6-8.5); Neutrophils Absolute Auto 7.9 K/mm3 (1.3-6.7); Neutrophils Percent Auto 74.2 % (45.5-73.1); Platelet Count Result 81 k/mm3 (150-375); Red Blood Count 3.26 M/mm3 (4.2-5.4); Red Cell Distribution Width 20.7 % (11.5-14.5); White Blood Count 10.7 K/mm3 (4.5-10.0)
[2022-04-15 06:20] LABS: Bilirubin,Total 37.9 mg/dL (0.2-1.3)
[2022-04-15 07:34] LABS: Crenated RBC 1+ (NORMAL); Platelet Estimate Decreased (Adequate); Poikilocytosis 1+ (NORMAL); Target Cells 1+ (NORMAL)
[2022-04-15 07:35] LABS: Schistocytes None Seen (NORMAL)
[2022-04-15 09:13] LABS: Glucose Point of Care 113 mg/dl (65-105)
[2022-04-15] MEDS: POTASSIUM CHLORIDE 20 MEQ TABLET 40 MEQ PO (09:46)
[2022-04-15] MEDS: MAGNESIUM SULF 2 GM/WATER 50ML 2 GM/50 ML BAG IVPB (09:46)
[2022-04-15] MEDS: PANTOPRAZOLE SODIUM IV 40 MG VIAL IV PUSH ×2 (09:47→20:37)
[2022-04-15] MEDS: POTASSIUM/PHOSPHORUS/SODIUM 1.5 GM PACKET 1 PACKET PO (09:47)
[2022-04-15] MEDS: FUROSEMIDE INJ 40 MG/4 ML VIAL 20 MG IV PUSH ×2 (09:47→17:44)
[2022-04-15 12:08] VITALS: BMI 27.8
[2022-04-15 12:11] LABS: Glucose Point of Care 160 mg/dl (65-105)
--- NOTE | 2022-04-15 12:37 | WPDGIPROGNO ---
Progress Note: A&P Assessment and Plan (1) Cirrhosis: Code(s): K74.60 - Unspecified cirrhosis of liver Status: Acute Assessment and Plan: patient has decompensated cirrhosis (new diagnosis with work up in progress) and sepsis/bacteremia repeat MRCP with normal bile duct, patient did not have any stone or significant abnormality in bile duct jaundice probably from advanced liver dysfunction and sepsis, she also had elevated MELD score will need follow-up with hepatology service in tertiary center she is tolerating diet (2) Jaundice: Code(s): R17 - Unspecified jaundice Status: Acute Assessment and Plan: multifactorial with decompensated cirrhosis (3) Sepsis: Code(s): A41.9 - Sepsis, unspecified organism Status: Acute (4) E coli bacteremia: Code(s): R78.81 - Bacteremia; B96.20 - Unspecified Escherichia coli [E. coli] as the cause of diseases classified elsewhere Status: Acute Assessment and Plan: on treatment (5) Gastric ulcer: Code(s): K25.9 - Gastric ulcer, unspecified as acute or chronic, without hemorrhage or perforation Status: Acute Assessment and Plan: no more bleeding on ppi twice daily (6) Melena: Code(s): K92.1 - Melena Status: Acute Assessment and Plan: stable h/h Subjective Date/time seen: 04/15/22 12:37 Interval history: complaining of back pain, she is eating. Still icteric Review of Systems Review of Systems: All systems reviewed & are unremarkable except as noted in HPI and below Exam Const: General: comfortable, ill appearing chronically and average body habitus Orientation/consciousness: patient oriented x3 HENMT: Head: normal to inspection, normocephalic and atraumatic Ears: hearing grossly normal bilaterally Eyes: General: appearance normal, both eyes and all related structures Sclera: scleral abnormality bilateral ( icterus) EOM: EOMs intact bilaterally Neck: Neck: full ROM Resp: Effort & Inspection: normal respiratory effort and able to speak in complete sentences Auscultation: clear to auscultation bilaterally Cardio: Jugular venous distension: no JVD Rate: regular rate Rhythm: regular rhythm GI: Inspection: distended GI Palp: Yes Soft to palpation, No Firmness to palpation present (GI) and No Guarding due to palpation present (GI) Auscultation: normal bowel sounds Skin: General skin exam: jaundice Neuro: General: patient oriented x3 and CN's II-XI intact bilaterally Speech: normal speech Motor exam (neuro): 5/5 motor strength present throughout Extrem: General: edema bilateral ( lower extremities) Psych: Mental Status: mental status grossly normal Objective Data Vital Signs Vital Signs: Vital Signs - 24 hr 04/14/22 13:54 04/14/22 20:00 04/14/22 22:00 Temperature 97.5 F L 97.5 F L Pulse Rate 63 63 64 Respiratory Rate 16 16 18 Blood Pressure 112/47 L 114/48 L Pulse Oximetry 95 95 96 Oxygen Delivery Room Air 04/15/22 06:00 04/15/22 09:45 Temperature 97.6 F Pulse Rate 62 Respiratory Rate 18 Blood Pressure 112/49 L Pulse Oximetry 96 Oxygen Delivery Room Air Intake/Output Intake/Output: Intake & Output 04/12/22 04/13/22 04/14/22 04/15/22 23:59 23:59 23:59 23:59 Intake Total 900 580 680 240 Output Total 300 Balance 900 580 380 240 Meds/Results Medications: Active Medications Generic Name Dose Route Start Last Admin Trade Name Freq PRN Reason Stop Dose Admin Cholestyramine Resin 4 gm 04/14/22 08:00 04/15/22 09:47 Cholestyramine (W/ Sugar) 4 Gm Powd.Pack PO 4 gm Q6H JORDAN Administration Dextrose 12.5 gm 04/12/22 07:49 Dextrose 50% 25 Gm/50 Ml Syringe IV PUSH PRN PRN Hypoglycemia Protocol Furosemide 20 mg 04/15/22 09:00 04/15/22 09:47 Furosemide Inj 40 Mg/4 Ml Vial IV PUSH 20 mg BID JORDAN Administration Glucagon 1 mg 04/12/22 07:49 Glucagon For Inj 1 Mg Vial IM P
--- NOTE | 2022-04-15 12:45 | PCOTNOTE ---
Attempted to see patient this pm, however patient just started eating lunch.
[2022-04-15] MEDS: cefTRIAXone 2 GM in SODIUM CHLORIDE 0.9% IV 100 ML 200 ML IVPB (13:17)
[2022-04-15 14:48] VITALS: BP 100/60; PULSE 70; RESP 16; TEMP 36.2; O2SAT 97
[2022-04-15 17:30] LABS: Glucose Point of Care 181 mg/dl (65-105)
--- NOTE | 2022-04-15 17:44 | PM.IMPN ---
Progress Note: A&P Assessment and Plan (1) Sepsis: Code(s): A41.9 - Sepsis, unspecified organism Status: Acute Assessment and Plan: Sepsis present on admission with lactic acidosis and leukocytosis and now with positive blood cultures. [place] to be related to UTI as the source of the bacteremia. MRCP is not consistent with ascending cholangitis although she may have passed a stone or sludge with resolution of the obstruction. Sepsis symptoms improving. WBC normal now. UCx and BCx growing EColi sensitive to Rocephin. Continue Rocephin 2gm daily (2) Conjugated hyperbilirubinemia: Code(s): E80.6 - Other disorders of bilirubin metabolism Status: Acute Assessment and Plan: Elevated LFTs present on admission. Likely secondary to underlying liver disease worsened by her bacteremia and UTI. She does have cirrhosis to suggest a more acute on chronic issue. Old CT scan in 2014 showing hepatic steatosis. AST/ALT better but Bili climbing to 38 now (Direct at 19). Suspect backward leakage from damaged hepatocytes or bile ducts. Hepatitis panel negative. INR elevated related to her cirrhosis. Ammonia level 20. Continue Questran at 16gm/day. Repeat MRCP but again showing no obstructive process. Follow. Appreciate GI input. Discussed with GI. Will add ursodiol. Add metamucil for the chronic diarrhea. (3) Anemia: Code(s): D64.9 - Anemia, unspecified Status: Acute Assessment and Plan: Patient does not have chronic anemia. Hemoglobin on admission was normal. Hemoglobin dropped from 9.6 and she did pass a large dark stool so octreotide was started. EGD 04/11 showed gastritis, gastric ulcer and hiatal hernia. Octreotide was stopped. Hgb better at 11.4. Continue PPI. Monitor HH (4) Gastric ulcer: Code(s): K25.9 - Gastric ulcer, unspecified as acute or chronic, without hemorrhage or perforation Status: Acute Assessment and Plan: As above. Continue PPI treatment (5) UTI (urinary tract infection): Code(s): N39.0 - Urinary tract infection, site not specified Status: Acute Assessment and Plan: As above. Continue IV abx (6) Abdominal pain: Code(s): R10.9 - Unspecified abdominal pain Status: Acute Assessment and Plan: CT A/P showing gastritis, inflammatory changes in the nayeli hepatis, cirrhosis and AAA. Likely related to liver disease and inflammation. Possibly related to gastritis and gastric ulcer. No significant ascites to suggest SBP. Continue IV antibiotics. Continue to monitor. (7) Diabetes mellitus: Code(s): E11.9 - Type 2 diabetes mellitus without complications Status: Acute Assessment and Plan: A1c 12.4. THis is a new diagnosis for this patient. She is not on anti hyperglycemic medications. The patient's blood glucose was reviewed on 04/15 Glucose well controlled. Start AccuCheks covering with sliding scale. Hypoglycemia protocol will be available as needed. Continue to monitor. (8) Cirrhosis: Code(s): K74.60 - Unspecified cirrhosis of liver Status: Acute Assessment and Plan: Etiology unclear but a CT in 2014 showed hepatic steatosis. Cirrhosis is a new diagnosis. Workup in progress. MELD score 29. She appears fluid overloaded. Continue low-dose Lasix. Consider spironolactone. As above (9) Thrombocytopenia: Code(s): D69.6 - Thrombocytopenia, unspecified Status: Acute Assessment and Plan: Patient with chronic thrombocytopenia probably related to cirrhosis. Platelet count 114K on admission and trended downward to 55K related to sepsis. Platelet count better. Continue to follow. Transfuse as necessary. (10) Chronic pain syndrome: Code(s): G89.4 - Chronic pain syndrome Status: Acute Assessment and Plan: Pain stable. Will add low dose oxycodone but stop if she becomes confused or somnolent (11) Generalized weakness: Cod
[2022-04-15] MEDS: LOPERAMIDE HCL 2 MG CAPSULE PO (17:48)
[2022-04-15 20:00] VITALS: PULSE 110; RESP 22; O2SAT 91
[2022-04-15] MEDS: ursodioL 300 MG CAPSULE PO (20:36)
[2022-04-15] MEDS: PSYLLIUM SUGAR FREE POWDER PACKET 1 PACKET PO (20:37)
[2022-04-15 20:57] LABS: Glucose Point of Care 219 mg/dl (65-105)
[2022-04-15 22:00] VITALS: BP 114/76; PULSE 110; RESP 22; TEMP 36.9; O2SAT 91
[2022-04-16] MEDS: CHOLESTYRAMINE (W/ SUGAR) 4 GM POWD.PACK PO ×4 (02:10→20:45)
[2022-04-16 05:55] LABS: Basophils Percent Auto 0.3 % (0.2-1.2); Eosinophils Absolute Auto 0.1 K/mm3 (0-0.3); Hematocrit 32.1 % (37.0-47.0); Hemoglobin 10.9 g/dL (12.0-15.0); Immature Granulocyte Absolute 0.09 K/mm3 (0.00-0.031); Immature Granulocyte Percent A 0.9 % (0-0.5); Immature Platelet Fraction Pct 4.3 % (0.9-11.2); Lymphocytes Percent Auto 15.7 % (18.3-44.2); Mean Corpuscular Hemoglobin 35.2 pg (26-34); Mean Corpuscular Volume 103.5 fl (80-100); Mean Platelet Volume 10.4 fl (7.4-10.4); Monocytes Absolute Auto 0.7 K/mm3 (0.1-0.6); Monocytes Percent Auto 7.1 % (2.6-8.5); Neutrophils Absolute Auto 7.6 K/mm3 (1.3-6.7); Platelet Count Result 78 k/mm3 (150-375); Red Cell Distribution Width 20.9 % (11.5-14.5); White Blood Count 10.2 K/mm3 (4.5-10.0)
[2022-04-16 06:00] VITALS: BP 154/78; PULSE 54; RESP 16; TEMP 36.7; O2SAT 97
[2022-04-16 06:09] LABS: INR 2.3; Prothrombin Time 24.8 Seconds (11.1-14.7)
[2022-04-16 06:20] LABS: Alanine Aminotransferase 129 U/L (6-35); Albumin Level 2.6 g/dL (3.5-5.1); Alkaline Phosphatase 183 U/L (38-126); Anion Gap 6 mmol/L (8-16); Aspartate Amino Transferase 125 U/L (14-36); Blood Urea Nitrogen 15 mg/dL (7-17); Carbon Dioxide 19 mmol/L (22-30); Chloride 115 mmol/L (98-107); Estimated CRCL calculation 54 ml/min; Estimated Glomerular Filt Rate > 60; Glucose 96 mg/dL (65-110); Magnesium 1.9 mg/dL (1.6-2.3); Phosphorus 2.4 mg/dL (2.5-4.5); Potassium 3.6 mmol/L (3.4-5.0); Sodium 140 mmol/L (137-145)
[2022-04-16 06:25] LABS: Bilirubin,Total 34.9 mg/dL (0.2-1.3)
[2022-04-16 06:27] LABS: Glucose Point of Care 97 mg/dl (65-105)
[2022-04-16] MEDS: PANTOPRAZOLE SODIUM IV 40 MG VIAL IV PUSH ×2 (09:58→20:45)
[2022-04-16] MEDS: PSYLLIUM SUGAR FREE POWDER PACKET 1 PACKET PO ×2 (09:58→22:06)
[2022-04-16] MEDS: ursodioL 300 MG CAPSULE PO ×2 (09:58→22:06)
[2022-04-16] MEDS: LOPERAMIDE HCL 2 MG CAPSULE PO (09:58)
[2022-04-16] MEDS: FUROSEMIDE INJ 40 MG/4 ML VIAL 20 MG IV PUSH ×2 (09:58→17:12)
--- NOTE | 2022-04-16 12:12 | WPDGIPROGNO ---
Progress Note: A&P Assessment and Plan (1) Cirrhosis: Code(s): K74.60 - Unspecified cirrhosis of liver Status: Acute Assessment and Plan: patient has decompensated cirrhosis (new diagnosis with work up in progress) and sepsis/bacteremia CINTHIA and AMA pending, ceruloplasmin 17 which is just below normal- will order 24 hour urine copper collection to assess for Prashant disease, probably also will need eye evaluation to check for KF ring MRCP with normal bile duct x2 and jaundice probably from advanced liver dysfunction and sepsis, she also had elevated MELD score- 29 today strongly advise follow-up with hepatology service in tertiary center she is tolerating diet (2) Jaundice: Code(s): R17 - Unspecified jaundice Status: Acute Assessment and Plan: multifactorial with decompensated cirrhosis added ursodiol (3) Sepsis: Code(s): A41.9 - Sepsis, unspecified organism Status: Acute (4) E coli bacteremia: Code(s): R78.81 - Bacteremia; B96.20 - Unspecified Escherichia coli [E. coli] as the cause of diseases classified elsewhere Status: Acute Assessment and Plan: on treatment (5) Gastric ulcer: Code(s): K25.9 - Gastric ulcer, unspecified as acute or chronic, without hemorrhage or perforation Status: Acute Assessment and Plan: no more bleeding on ppi twice daily (6) Melena: Code(s): K92.1 - Melena Status: Acute Assessment and Plan: stable h/h now Subjective Date/time seen: 04/16/22 12:12 Interval history: she is in good spirits today and hungry, denies pruritus, no confusion. Review of Systems Review of Systems: All systems reviewed & are unremarkable except as noted in HPI and below Exam Const: General: comfortable, ill appearing chronically and average body habitus Orientation/consciousness: patient oriented x3 HENMT: Head: normal to inspection, normocephalic and atraumatic Ears: hearing grossly normal bilaterally Eyes: General: appearance normal, both eyes and all related structures Sclera: scleral abnormality bilateral ( icterus) Neck: Neck: full ROM Resp: Effort & Inspection: normal respiratory effort and able to speak in complete sentences Auscultation: clear to auscultation bilaterally Cardio: Jugular venous distension: no JVD Rate: regular rate Rhythm: regular rhythm GI: Inspection: distended GI Palp: Yes Soft to palpation, No Firmness to palpation present (GI) and No Guarding due to palpation present (GI) Auscultation: normal bowel sounds Skin: General skin exam: jaundice Neuro: General: patient oriented x3 and CN's II-XI intact bilaterally Speech: normal speech Motor exam (neuro): 5/5 motor strength present throughout Extrem: General: edema bilateral ( lower extremities) Psych: Mental Status: mental status grossly normal Objective Data Vital Signs Vital Signs: Vital Signs - 24 hr 04/15/22 14:48 04/15/22 22:00 04/15/22 20:00 Temperature 97.1 F L 98.4 F Pulse Rate 70 110 H 110 H Respiratory Rate 16 22 H 22 H Blood Pressure 100/60 114/76 Pulse Oximetry 97 91 91 Oxygen Delivery Room Air 04/16/22 06:00 04/16/22 09:50 Temperature 98.0 F Pulse Rate 54 L Respiratory Rate 16 Blood Pressure 154/78 H Pulse Oximetry 97 Oxygen Delivery Room Air Intake/Output Intake/Output: Intake & Output 04/13/22 04/14/22 04/15/22 04/16/22 23:59 23:59 23:59 23:59 Intake Total 249 724 2711 240 Output Total 300 300 500 Balance 580 380 760 -260 Meds/Results Medications: Active Medications Generic Name Dose Route Start Last Admin Trade Name Freq PRN Reason Stop Dose Admin Cholestyramine Resin 4 gm 04/14/22 08:00 04/16/22 09:59 Cholestyramine (W/ Sugar) 4 Gm Powd.Pack PO 4 gm Q6H JORDAN Administration Dextrose 12.5 gm 04/12/22 07:49 Dextrose 50% 25 Gm/50 Ml Syringe IV PUSH PRN PRN Hypoglycemia Protocol Furosemide 20 mg 04/15/22 09:00
[2022-04-16 12:18] LABS: Glucose Point of Care 135 mg/dl (65-105)
--- NOTE | 2022-04-16 12:19 | PM.IMPN ---
Progress Note: A&P Assessment and Plan (1) Sepsis: Code(s): A41.9 - Sepsis, unspecified organism Status: Acute Assessment and Plan: Sepsis present on admission with lactic acidosis and leukocytosis and now with positive blood cultures. [place] to be related to UTI as the source of the bacteremia. MRCP is not consistent with ascending cholangitis although she may have passed a stone or sludge with resolution of the obstruction. WBC normal now. UCx and BCx growing EColi sensitive to Rocephin. Sepsis symptoms resolved. Continue Rocephin 2gm daily. (2) Conjugated hyperbilirubinemia: Code(s): E80.6 - Other disorders of bilirubin metabolism Status: Acute Assessment and Plan: Elevated LFTs present on admission. Likely secondary to underlying liver disease worsened by her bacteremia and UTI. She does have cirrhosis to suggest this has a chronic component. Old CT scan in 2014 showing hepatic steatosis. AST/ALT better and Bili down to 35 (Direct at 19). Suspect backward leakage from damaged hepatocytes or bile ducts. Hepatitis panel negative. INR elevated related to her cirrhosis. Ammonia level 20. Continue Questran at 16gm/day and [place]. Repeat MRCP but again showing no obstructive process. Appreciate GI input. Continue metamucil for the chronic diarrhea and add Fibercon. (3) Anemia: Code(s): D64.9 - Anemia, unspecified Status: Acute Assessment and Plan: Patient does not have chronic anemia. Hemoglobin on admission was normal. Hemoglobin dropped from 9.6 and she did pass a large dark stool so octreotide was started. EGD 04/11 showed gastritis, gastric ulcer and hiatal hernia. Octreotide was stopped. Hgb better at 11. Continue PPI. Monitor HH (4) Gastric ulcer: Code(s): K25.9 - Gastric ulcer, unspecified as acute or chronic, without hemorrhage or perforation Status: Acute Assessment and Plan: As above. Continue PPI treatment (5) UTI (urinary tract infection): Code(s): N39.0 - Urinary tract infection, site not specified Status: Acute Assessment and Plan: As above. Continue IV abx (6) Abdominal pain: Code(s): R10.9 - Unspecified abdominal pain Status: Acute Assessment and Plan: CT A/P showing gastritis, inflammatory changes in the nayeli hepatis, cirrhosis and AAA. Likely related to liver disease and inflammation. Possibly related to gastritis and gastric ulcer. MRCP showing body wall edema and ascites. Abdominal pain improving overall. Continue IV antibiotics. Continue to monitor. (7) Diabetes mellitus: Code(s): E11.9 - Type 2 diabetes mellitus without complications Status: Acute Assessment and Plan: A1c 12.4. This is a new diagnosis for this patient. She was not on anti hyperglycemic medications on admission. The patient's blood glucose was reviewed on 04/16 Glucose well controlled. Start AccuCheks covering with sliding scale. Hypoglycemia protocol will be available as needed. Continue to monitor. (8) Cirrhosis: Code(s): K74.60 - Unspecified cirrhosis of liver Status: Acute Assessment and Plan: Etiology unclear but a CT in 2014 showed hepatic steatosis. Cirrhosis is a new diagnosis. Workup in progress. Ceruloplasmin level is low. MELD score 29. She appears fluid overloaded so low dose Lasix started with benefit. Continue low-dose Lasix. Consider spironolactone. As above (9) Thrombocytopenia: Code(s): D69.6 - Thrombocytopenia, unspecified Status: Acute Assessment and Plan: Patient with chronic thrombocytopenia probably related to cirrhosis. Platelet count 114K on admission and trended downward to 55K related to sepsis. Platelet count better. Continue to follow. Transfuse as necessary. (10) Chronic pain syndrome: Code(s): G89.4 - Chronic pain syndrome Status: Acute Assessment and Plan: Pain better. Low dose oxycodone
[2022-04-16 12:39] LABS: Mitochondrial (M2) Ab (IgG) <=20.0 U (<=20.0)
[2022-04-16] MEDS: POTASSIUM/PHOSPHORUS/SODIUM 1.5 GM PACKET 1 PACKET PO (13:26)
[2022-04-16] MEDS: cefTRIAXone 2 GM in SODIUM CHLORIDE 0.9% IV 100 ML 200 ML IVPB (13:26)
[2022-04-16 14:00] VITALS: BP 103/38; PULSE 68; RESP 18; TEMP 36.2; O2SAT 100
[2022-04-16] MEDS: calcium polycarbophiL 625 MG TABLET PO (17:12)
[2022-04-16] MEDS: INSULIN ASPART (*BKC) 100 UNITS/ML SUB-Q (17:16)
[2022-04-16 17:42] LABS: Glucose Point of Care 181 mg/dl (65-105)
[2022-04-16 17:59] LABS: Glucose Point of Care 205 mg/dl (65-105)
[2022-04-16 21:00] VITALS: BP 116/51; PULSE 64; RESP 16; TEMP 36.4; O2SAT 98
[2022-04-16 21:31] LABS: Glucose Point of Care 123 mg/dl (65-105)
[2022-04-17] MEDS: CHOLESTYRAMINE (W/ SUGAR) 4 GM POWD.PACK PO ×4 (02:08→20:32)
[2022-04-17 04:09] VITALS: BP 123/49; PULSE 63; RESP 18; TEMP 36.6; O2SAT 96
[2022-04-17 05:52] LABS: Basophils Percent Auto 0.3 % (0.2-1.2); Eosinophils Absolute Auto 0.1 K/mm3 (0-0.3); Eosinophils Percent Auto 0.7 % (0-4.4); Hematocrit 32.8 % (37.0-47.0); Hemoglobin 11.2 g/dL (12.0-15.0); Immature Granulocyte Percent A 0.8 % (0-0.5); Immature Platelet Fraction Pct 4.1 % (0.9-11.2); Lymphocytes Absolute Auto 1.82 K/mm3 (0.9-3.2); Lymphocytes Percent Auto 14.3 % (18.3-44.2); Mean Corpuscular HGB Conc 34.1 g/dl (32-36); Mean Corpuscular Hemoglobin 35.2 pg (26-34); Mean Corpuscular Volume 103.1 fl (80-100); Mean Platelet Volume 10.7 fl (7.4-10.4); Monocytes Absolute Auto 0.8 K/mm3 (0.1-0.6); Neutrophils Absolute Auto 9.9 K/mm3 (1.3-6.7); Neutrophils Percent Auto 77.9 % (45.5-73.1); Platelet Count Result 87 k/mm3 (150-375); Red Blood Count 3.18 M/mm3 (4.2-5.4); Red Cell Distribution Width 21.2 % (11.5-14.5); White Blood Count 12.7 K/mm3 (4.5-10.0)
[2022-04-17 05:58] LABS: INR 2.3; Prothrombin Time 24.5 Seconds (11.1-14.7)
[2022-04-17 06:05] LABS: Alanine Aminotransferase 131 U/L (6-35); Albumin Level 2.8 g/dL (3.5-5.1); Alkaline Phosphatase 186 U/L (38-126); Anion Gap 7 mmol/L (8-16); Aspartate Amino Transferase 132 U/L (14-36); Blood Urea Nitrogen 13 mg/dL (7-17); Carbon Dioxide 18 mmol/L (22-30); Chloride 110 mmol/L (98-107); Estimated CRCL calculation 48 ml/min; Estimated Glomerular Filt Rate > 60; Glucose 90 mg/dL (65-110); Magnesium 1.6 mg/dL (1.6-2.3); Phosphorus 2.5 mg/dL (2.5-4.5); Potassium 3.2 mmol/L (3.4-5.0); Sodium 135 mmol/L (137-145)
[2022-04-17 06:09] LABS: Bilirubin,Total 34.6 mg/dL (0.2-1.3)
[2022-04-17 08:40] LABS: Glucose Point of Care 81 mg/dl (65-105)
[2022-04-17] MEDS: POTASSIUM/PHOSPHORUS/SODIUM 1.5 GM PACKET 1 PACKET PO (10:09)
[2022-04-17] MEDS: ursodioL 300 MG CAPSULE PO ×2 (10:09→20:33)
[2022-04-17] MEDS: calcium polycarbophiL 625 MG TABLET PO ×2 (10:09→17:45)
[2022-04-17] MEDS: FUROSEMIDE INJ 40 MG/4 ML VIAL 20 MG IV PUSH ×2 (10:09→17:45)
[2022-04-17] MEDS: PSYLLIUM SUGAR FREE POWDER PACKET 1 PACKET PO ×2 (10:10→20:32)
[2022-04-17] MEDS: PANTOPRAZOLE SODIUM IV 40 MG VIAL IV PUSH (10:10)
[2022-04-17] MEDS: MAGNESIUM SULF 2 GM/WATER 50ML 2 GM/50 ML BAG IVPB (10:12)
[2022-04-17] MEDS: LOPERAMIDE HCL 2 MG CAPSULE PO (10:12)
[2022-04-17] MEDS: POTASSIUM CHLORIDE 20 MEQ TABLET 40 MEQ PO (10:12)
[2022-04-17] MEDS: oxyCODONE HCL (*CRX) 2.5 MG TAB IR PO ×2 (10:12→17:45)
[2022-04-17 12:45] LABS: Glucose Point of Care 134 mg/dl (65-105)
--- NOTE | 2022-04-17 13:01 | WPDGIPROGNO ---
Progress Note: A&P Assessment and Plan (1) Cirrhosis: Code(s): K74.60 - Unspecified cirrhosis of liver Status: Acute Assessment and Plan: patient has decompensated cirrhosis (new diagnosis with work up in progress) and sepsis/bacteremia, also new diagnosis of diabetes with high a1c. CINTHIA and AMA pending, ceruloplasmin 17 and pending 24 hour urine copper collection to assess for Prashant disease MRCP with normal bile duct x2 and jaundice probably from advanced liver dysfunction and sepsis, she also had elevated MELD score 29 will need follow-up with hepatology service in tertiary center tolerating diet (2) Jaundice: Code(s): R17 - Unspecified jaundice Status: Acute Assessment and Plan: multifactorial with decompensated cirrhosis started on ursodiol (3) Sepsis: Code(s): A41.9 - Sepsis, unspecified organism Status: Acute Assessment and Plan: treated (4) E coli bacteremia: Code(s): R78.81 - Bacteremia; B96.20 - Unspecified Escherichia coli [E. coli] as the cause of diseases classified elsewhere Status: Acute Assessment and Plan: also positive urine culture and probably source of infection (5) Gastric ulcer: Code(s): K25.9 - Gastric ulcer, unspecified as acute or chronic, without hemorrhage or perforation Status: Acute Assessment and Plan: no more bleeding on ppi twice daily (6) Melena: Code(s): K92.1 - Melena Status: Acute Assessment and Plan: stable h/h now (7) Diabetes mellitus: Code(s): E11.9 - Type 2 diabetes mellitus without complications Status: Acute Subjective Date/time seen: 04/17/22 13:01 Interval history: no new events Review of Systems Review of Systems: All systems reviewed & are unremarkable except as noted in HPI and below Exam Const: General: comfortable, ill appearing chronically and average body habitus Orientation/consciousness: patient oriented x3 HENMT: Head: normal to inspection, normocephalic and atraumatic Ears: hearing grossly normal bilaterally Eyes: General: appearance normal, both eyes and all related structures Sclera: scleral abnormality bilateral ( icterus) Neck: Neck: full ROM Resp: Effort & Inspection: normal respiratory effort and able to speak in complete sentences Auscultation: clear to auscultation bilaterally Cardio: Jugular venous distension: no JVD Rate: regular rate Rhythm: regular rhythm GI: Inspection: distended GI Palp: Yes Soft to palpation, No Firmness to palpation present (GI) and No Guarding due to palpation present (GI) Auscultation: normal bowel sounds Skin: General skin exam: jaundice Neuro: General: patient oriented x3 and CN's II-XI intact bilaterally Speech: normal speech Motor exam (neuro): 5/5 motor strength present throughout Extrem: General: edema bilateral ( lower extremities) Psych: Mental Status: mental status grossly normal Objective Data Vital Signs Vital Signs: Vital Signs - 24 hr 04/16/22 14:00 04/16/22 21:00 04/17/22 04:09 Temperature 97.1 F L 97.6 F 97.8 F Pulse Rate 68 64 63 Respiratory Rate 18 16 18 Blood Pressure 103/38 L 116/51 L 123/49 L Pulse Oximetry 100 98 96 Oxygen Delivery 04/17/22 10:00 Temperature Pulse Rate Respiratory Rate Blood Pressure Pulse Oximetry Oxygen Delivery Room Air Intake/Output Intake/Output: Intake & Output 04/14/22 04/15/22 04/16/22 04/17/22 23:59 23:59 23:59 23:59 Intake Total 680 1060 820 480 Output Total 300 300 500 550 Balance 380 760 320 -70 Meds/Results Medications: Active Medications Generic Name Dose Route Start Last Admin Trade Name Paulq PRN Reason Stop Dose Admin Calcium Polycarbophil 625 mg 04/16/22 17:00 04/17/22 10:09 Calcium Polycarbophil 625 Mg Tablet PO 625 mg BID JORDAN Administration Cholestyramine Resin 4 gm 04/14/22 08:00 04/17/22 10:09 Cholestyramine (W/ Sugar) 4 Gm Powd.Pack PO 4 gm
[2022-04-17] MEDS: cefTRIAXone 2 GM in SODIUM CHLORIDE 0.9% IV 100 ML 200 ML IVPB (13:27)
[2022-04-17 14:00] VITALS: BP 108/45; PULSE 73; RESP 18; TEMP 36.3; O2SAT 95
[2022-04-17 17:46] LABS: Glucose Point of Care 172 mg/dl (65-105)
--- NOTE | 2022-04-17 18:06 | PM.IMPN ---
Progress Note: A&P Assessment and Plan (1) Sepsis: Code(s): A41.9 - Sepsis, unspecified organism Status: Acute Assessment and Plan: Sepsis present on admission with lactic acidosis and leukocytosis and now with positive blood cultures. [place] to be related to UTI as the source of the bacteremia. MRCP is not consistent with ascending cholangitis although she may have passed a stone or sludge with resolution of the obstruction. WBC normal now. UCx and BCx growing EColi sensitive to Rocephin. Sepsis symptoms resolved. Continue Rocephin 2gm daily. (2) Conjugated hyperbilirubinemia: Code(s): E80.6 - Other disorders of bilirubin metabolism Status: Acute Assessment and Plan: Elevated LFTs present on admission. Likely secondary to underlying liver disease (cirhosis) worsened by her bacteremia and UTI. Old CT scan in 2014 showing hepatic steatosis. AST/ALT about the same and Bili still at 35 (Direct at 19). MRCP but again showing no obstructive process. Hepatitis panel negative. INR elevated related to her cirrhosis. Ammonia level 20. Suspect backward leakage from damaged hepatocytes or bile ducts. Continue Questran at 16gm/day and Actigall. Appreciate GI input. Continue metamucil add fibercon for the chronic diarrhea (3) Anemia: Code(s): D64.9 - Anemia, unspecified Status: Acute Assessment and Plan: Patient does not have chronic anemia. Hemoglobin on admission was normal. Hemoglobin dropped from 9.6 and she did pass a large dark stool so octreotide was started. EGD 04/11 showed gastritis, gastric ulcer and hiatal hernia. Octreotide was stopped. Hgb better at 11. Continue PPI. Monitor HH (4) Gastric ulcer: Code(s): K25.9 - Gastric ulcer, unspecified as acute or chronic, without hemorrhage or perforation Status: Acute Assessment and Plan: As above. Continue PPI treatment (5) UTI (urinary tract infection): Code(s): N39.0 - Urinary tract infection, site not specified Status: Acute Assessment and Plan: As above. Continue IV abx (6) Abdominal pain: Code(s): R10.9 - Unspecified abdominal pain Status: Acute Assessment and Plan: CT A/P showing gastritis, inflammatory changes in the nayeli hepatis, cirrhosis and AAA. MRCP showing mildly edematous stomach and SB, cirrhosis and portal HTN. Abd pain related to liver disease and inflammation. Possibly related to gastritis and gastric ulcer. Abdominal pain improving overall. Continue IV antibiotics. Continue to monitor. (7) Diabetes mellitus: Code(s): E11.9 - Type 2 diabetes mellitus without complications Status: Acute Assessment and Plan: A1c 12.4. This is a new diagnosis for this patient. She was not on anti hyperglycemic medications on admission. The patient's blood glucose was reviewed on 04/17 Glucose well controlled. Continue AccuCheks covering with sliding scale. Hypoglycemia protocol available as needed. Continue to monitor. (8) Cirrhosis: Code(s): K74.60 - Unspecified cirrhosis of liver Status: Acute Assessment and Plan: Etiology unclear but a CT in 2014 showed hepatic steatosis. Cirrhosis is a new diagnosis. She has ascites and portal HTN. Workup in progress. Ceruloplasmin level is low and she is having a 24hr urine for copper. MELD score 29. She appeared fluid overloaded so low dose Lasix started with benefit. Continue low-dose Lasix. Consider spironolactone. As above (9) Thrombocytopenia: Code(s): D69.6 - Thrombocytopenia, unspecified Status: Acute Assessment and Plan: Patient with chronic thrombocytopenia probably related to cirrhosis. Platelet count 114K on admission and trended downward to 55K related to sepsis. Platelet count better. Continue to follow. Transfuse as necessary. (10) Chronic pain syndrome: Code(s): G89.4 - Chronic pain syndrome Status: Acute Assessment
[2022-04-17 20:00] VITALS: PULSE 71; RESP 18; O2SAT 100
[2022-04-17 20:12] VITALS: BP 127/53; PULSE 71; RESP 18; TEMP 36.6; O2SAT 100
[2022-04-17] MEDS: PANTOPRAZOLE 40 MG TABLET PO (20:32)
[2022-04-17 22:27] LABS: Glucose Point of Care 213 mg/dl (65-105)
[2022-04-18] MEDS: oxyCODONE HCL (*CRX) 2.5 MG TAB IR PO ×3 (00:38→18:45)
[2022-04-18 04:16] VITALS: BP 119/49; PULSE 67; RESP 18; TEMP 36.5; O2SAT 94
[2022-04-18 06:36] LABS: Basophils Absolute Auto 0.1 K/mm3 (0.0-0.1); Basophils Percent Auto 0.4 % (0.2-1.2); Eosinophils Absolute Auto 0.1 K/mm3 (0-0.3); Eosinophils Percent Auto 1.1 % (0-4.4); Hematocrit 33.8 % (37.0-47.0); Hemoglobin 11.1 g/dL (12.0-15.0); Immature Granulocyte Absolute 0.15 K/mm3 (0.00-0.031); Immature Granulocyte Percent A 1.3 % (0-0.5); Immature Platelet Fraction Pct 4.5 % (0.9-11.2); Mean Corpuscular HGB Conc 32.8 g/dl (32-36); Mean Corpuscular Hemoglobin 34.6 pg (26-34); Mean Corpuscular Volume 105.3 fl (80-100); Mean Platelet Volume 11.5 fl (7.4-10.4); Monocytes Percent Auto 8.7 % (2.6-8.5); Neutrophils Absolute Auto 8.5 K/mm3 (1.3-6.7); Neutrophils Percent Auto 74.5 % (45.5-73.1); Platelet Count Result 89 k/mm3 (150-375); Red Blood Count 3.21 M/mm3 (4.2-5.4); White Blood Count 11.5 K/mm3 (4.5-10.0)
[2022-04-18 07:19] LABS: Alanine Aminotransferase 124 U/L (6-35); Albumin Level 2.7 g/dL (3.5-5.1); Alkaline Phosphatase 177 U/L (38-126); Anion Gap 4 mmol/L (8-16); Aspartate Amino Transferase 124 U/L (14-36); Blood Urea Nitrogen 17 mg/dL (7-17); Calcium 8.1 mg/dL (8.4-10.2); Carbon Dioxide 18 mmol/L (22-30); Chloride 110 mmol/L (98-107); Estimated CRCL calculation 30 ml/min; Estimated Glomerular Filt Rate 34; Glucose 126 mg/dL (65-110); Potassium 3.5 mmol/L (3.4-5.0); Sodium 132 mmol/L (137-145)
[2022-04-18 09:14] LABS: Glucose Point of Care 111 mg/dl (65-105)
[2022-04-18 10:06] LABS: Platelet Estimate Decreased (Adequate)
[2022-04-18 10:07] LABS: Macrocytosis 1+ (NORMAL); Target Cells 1+ (NORMAL)
[2022-04-18 10:12] LABS: Schistocytes None Seen (NORMAL)
[2022-04-18] MEDS: CHOLESTYRAMINE (W/ SUGAR) 4 GM POWD.PACK PO ×3 (10:36→20:18)
[2022-04-18] MEDS: PSYLLIUM SUGAR FREE POWDER PACKET 1 PACKET PO ×2 (10:36→21:46)
[2022-04-18] MEDS: PANTOPRAZOLE 40 MG TABLET PO ×2 (10:37→21:46)
[2022-04-18] MEDS: calcium polycarbophiL 625 MG TABLET PO ×2 (10:38→16:00)
[2022-04-18] MEDS: ursodioL 300 MG CAPSULE PO ×2 (10:38→21:46)
[2022-04-18 11:28] LABS: Anion Gap 5 mmol/L (8-16); Blood Urea Nitrogen 17 mg/dL (7-17); Carbon Dioxide 20 mmol/L (22-30); Chloride 110 mmol/L (98-107); Estimated CRCL calculation 28 ml/min; Estimated Glomerular Filt Rate 31; Glucose 162 mg/dL (65-110); Potassium 4.1 mmol/L (3.4-5.0); Sodium 135 mmol/L (137-145)
[2022-04-18 12:35] LABS: Glucose Point of Care 152 mg/dl (65-105)
[2022-04-18] MEDS: cefTRIAXone 2 GM in SODIUM CHLORIDE 0.9% IV 100 ML 200 ML IVPB (13:18)
[2022-04-18 14:00] VITALS: BP 104/51; PULSE 62; RESP 20; TEMP 36.2; O2SAT 100
--- NOTE | 2022-04-18 16:29 | PM.IMPN ---
Progress Note: A&P Assessment and Plan (1) DOV (acute kidney injury): Code(s): N17.9 - Acute kidney failure, unspecified Status: Acute Assessment and Plan: Creatinine increased to 1.5 today. Probably related to Lasix and dehydration from diarrhea but concern for hepatorenal syndrome. Repeat labs show creatinine is about the same. She did not receive Lasix today. Creatinine may have peaked. If creatinine is trending downward or normal tomorrow, then okay for discharge to SNF. (2) Sepsis: Code(s): A41.9 - Sepsis, unspecified organism Status: Acute Assessment and Plan: Sepsis present on admission with lactic acidosis and leukocytosis and now with positive blood cultures. [place] to be related to UTI as the source of the bacteremia. MRCP is not consistent with ascending cholangitis although she may have passed a stone or sludge with resolution of the obstruction. UCx and BCx growing EColi sensitive to Rocephin. Sepsis symptoms resolved. Today is Day 10 of abx so will stop Rocephin. (3) Conjugated hyperbilirubinemia: Code(s): E80.6 - Other disorders of bilirubin metabolism Status: Acute Assessment and Plan: Elevated LFTs present on admission. Likely secondary to underlying cirrhosis worsened by her bacteremia and UTI. Old CT scan in 2014 showing hepatic steatosis. AST/ALT about the same and Bili still at 34. MRCP showing no obstructive process. Hepatitis panel negative. INR elevated related to her cirrhosis. Ammonia level 20. Suspect backward leakage from damaged hepatocytes or bile ducts. Continue Questran at 16gm/day and Actigall. Appreciate GI input. Continue bulking agents metamucil and fibercon for the chronic diarrhea but not much of a benefit (4) Anemia: Code(s): D64.9 - Anemia, unspecified Status: Acute Assessment and Plan: Patient does not have chronic anemia. Hemoglobin on admission was normal. Hemoglobin dropped from 9.6 and she did pass a large dark stool so octreotide was started. EGD 04/11 showed gastritis, gastric ulcer and hiatal hernia. Octreotide was stopped. Hgb better at 11. Continue PPI. Monitor HH (5) Gastric ulcer: Code(s): K25.9 - Gastric ulcer, unspecified as acute or chronic, without hemorrhage or perforation Status: Acute Assessment and Plan: As above. Continue PPI treatment (6) UTI (urinary tract infection): Code(s): N39.0 - Urinary tract infection, site not specified Status: Acute Assessment and Plan: As above. Stop abx today. (7) Abdominal pain: Code(s): R10.9 - Unspecified abdominal pain Status: Acute Assessment and Plan: CT A/P showing gastritis, inflammatory changes in the nayeli hepatis, cirrhosis and AAA. MRCP showing mildly edematous stomach and SB, cirrhosis and portal HTN. Abd pain related to liver disease and inflammation. Possibly related to gastritis and gastric ulcer. Abdominal pain improving overall. Stop IV antibiotics. Continue to monitor. (8) Diabetes mellitus: Code(s): E11.9 - Type 2 diabetes mellitus without complications Status: Acute Assessment and Plan: A1c 12.4. This is a new diagnosis for this patient. She was not on anti hyperglycemic medications on admission. The patient's blood glucose was reviewed on 04/18 Glucose well controlled on no medications (A1c false positive?). Continue AccuCheks covering with sliding scale. Hypoglycemia protocol available as needed. Continue to monitor. (9) Cirrhosis: Code(s): K74.60 - Unspecified cirrhosis of liver Status: Acute Assessment and Plan: Etiology unclear but a CT in 2014 showed hepatic steatosis. Cirrhosis is a new diagnosis. She has ascites and portal HTN. Workup in progress. Ceruloplasmin level is low and she had a 24hr urine for copper. MELD score 29. She appeared fluid overloaded so low dose Lasix started with benefit ut now stopped due
[2022-04-18 17:09] LABS: Glucose Point of Care 167 mg/dl (65-105)
[2022-04-18 21:10] LABS: Glucose Point of Care 231 mg/dl (65-105)
[2022-04-18 22:00] VITALS: BP 109/43; PULSE 62; RESP 20; TEMP 36.6; O2SAT 99
[2022-04-19] MEDS: oxyCODONE HCL (*CRX) 2.5 MG TAB IR PO ×3 (02:50→18:24)
[2022-04-19] MEDS: CHOLESTYRAMINE (W/ SUGAR) 4 GM POWD.PACK PO ×3 (02:51→13:09)
[2022-04-19 06:00] VITALS: BP 117/56; PULSE 64; RESP 18; TEMP 36.7; O2SAT 100
[2022-04-19 06:43] LABS: Anion Gap 6 mmol/L (8-16); Blood Urea Nitrogen 17 mg/dL (7-17); Calcium 8.1 mg/dL (8.4-10.2); Carbon Dioxide 16 mmol/L (22-30); Chloride 108 mmol/L (98-107); Estimated CRCL calculation 34 ml/min; Estimated Glomerular Filt Rate 40; Glucose 102 mg/dL (65-110); Potassium 3.7 mmol/L (3.4-5.0); Sodium 130 mmol/L (137-145)
[2022-04-19 09:14] LABS: Glucose Point of Care 86 mg/dl (65-105)
[2022-04-19] MEDS: ursodioL 300 MG CAPSULE PO (09:34)
[2022-04-19] MEDS: PANTOPRAZOLE 40 MG TABLET PO (09:34)
[2022-04-19] MEDS: calcium polycarbophiL 625 MG TABLET PO ×2 (09:34→18:18)
[2022-04-19] MEDS: PSYLLIUM SUGAR FREE POWDER PACKET 1 PACKET PO (09:34)
[2022-04-19 12:20] LABS: Glucose Point of Care 90 mg/dl (65-105)
--- NOTE | 2022-04-19 13:29 | PCNFU ---
Nutrition Follow-Up Complete: Unintended weight loss as related to poor po intake/Ab pain as evidenced with 8% weight loss in the past 8 months. Goal:Meet estimated nutritional needs. Pt is progressing towards goal, continue with current goal. Pt current nutrition is 2gm NA diet. Nutrition recommendation: Continue with current plan of care. Last recorded weight is 78.1 kg - stable at this time. Bowel Motility: +BM 04/19 Labs Reviewed: NA:130, Cr:1.3, Glu:167 Meds Noted: novolog, zofran, protonix Skin: no skin issues noted Additional Notes: Pt continues on a 2g NA diet, intake has improved some, glucerna shakes ordered BID. Agree with diet orders. Will monitor every 5 days.
[2022-04-19 14:30] VITALS: BP 104/40; PULSE 59; RESP 16; TEMP 36.7; O2SAT 98
[2022-04-19 15:07] LABS: EDCOVIDSCREEN Negative (Negative)
[2022-04-19 17:25] LABS: Glucose Point of Care 181 mg/dl (65-105)
--- NOTE | 2022-04-19 17:43 | PM.DS ---
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 DS: Discharge Diagnosis Discharge Diagnosis Plan (1) DOV (acute kidney injury): (2) Sepsis: (3) Conjugated hyperbilirubinemia: (4) Anemia: (5) Gastric ulcer: (6) UTI (urinary tract infection): (7) Abdominal pain: (8) Diabetes mellitus: (9) Cirrhosis: (10) Thrombocytopenia: (11) Chronic pain syndrome: (12) Generalized weakness: ?(13) CLL (chronic lymphocytic leukemia): ?(14) Hyponatremia: ? ? DS: Summary Hospital Course Reason for hospitalization: 77yo female with history for CLL (in remission), status post total colectomy with chronic diarrhea, and chronic pain brought to ED for AMS, lethargy, anorexia, jaundiced skin and abdominal pain. Hospital Course: Please refer to admission H& P. Briefly, this is a 77-year-old female with past medical history significant for chronic lymphocytic leukemia in remission, status post total colectomy, chronic diarrhea, former smoker, who was brought to the emergency room due to altered mental status, obtundation, lethargy spending all day in bed, not eating well, yellow discoloration of the? a skin, abdominal pain, patient denies any fevers, rigors, chills, nausea, vomiting, no cough, no sputum production. Preliminary workup was significant for CT of abdomen and pelvis was reported as esophagitis/gastritis, with diffuse edema and hyperemia of the small bowel as can be seen with infectious, inflammatory, and ischemic etiologies. Per GI evaluation, the patient was diagnosed with decompensated cirrhosis (new diagnosis with work up in progress) and sepsis/bacteremia, also new diagnosis of diabetes with high a1c. CINTHIA and AMA are wnl, ceruloplasmin 17 and pending 24 hour urine copper collection to assess for Prashant disease MRCP with normal bile duct x2 and jaundice probably from advanced liver dysfunction and sepsis, she also had elevated MELD score 29 The patient will certainly need follow-up with hepatology service in tertiary center. Patient was diagnosed with thrombocytopenia with a platelet count 62. Her platelet count improved throughout the admission. [place] [address] on 04/18/2022. (2) Jaundice: ?Code(s): R17 - Unspecified jaundice ?Status:?Acute ?Assessment and Plan: Conjugated hyperbilirubinemia;multifactorial with decompensated cirrhosis ?Old CT scan in 2014 showing hepatic steatosis. AST/ALT about the same and Bili still at 35 (Direct at 19).? MRCP but again showing no obstructive process. Hepatitis panel negative. INR elevated related to her cirrhosis. Ammonia level 20. Suspect backward leakage from damaged hepatocytes or bile ducts. Continue Questran at 16gm/day and Actigall. Appreciate GI input. Continue metamucil add fibercon for the chronic diarrhea. Patient was started on ursodiol; she is discharged on ursodiol and will follow up with hepatology as an outpatient. (3) Sepsis: ?Code(s): A41.9 - Sepsis, unspecified organism ?Status:?Acute ?Assessment and Plan: treated (4) E coli bacteremia: ?Code(s): R78.81 - Bacteremia; B96.20 - Unspecified Escherichia coli [E. coli] as the cause of diseases classified elsewhere ?Status:?Acute ?Assessment and Plan: also positive urine culture and probably source of infection (5) Gastric ulcer: ?Code(s): K25.9 - Gastric ulcer, unspecified as acute or chronic, without hemorrhage or perforation ?Status:?Acute ?Assessment and Plan: Patient was asymptomatic with no more bleeding at the time of discharge. She will follow up with liver/GI and will remain on ppi twice daily (6) Melena: ?Code(s): K92.1 - Melena ? ?
== END 2022-04-19 20:05 | DRG 871 ==
LOC: ANHED 20:21 → ANH3MED 21:57
PROVIDERS: Chiropractor; Emergency Medicine; Internal Medicine; Internal Medicine Gastroenterology; Admitting Provider Internal Medicine; Emergency Provider Emergency Medicine; PCP Internal Medicine; Visit Provider Internal Medicine
PROC: 0DJ08ZZ Inspection of Upper Intestinal Tract, Via Natural or Artificial Opening Endoscopic (ICD-10-PCS; CPT 43235; principal; 2022-04-11 12:00)
DX: A41.51 Sepsis due to Escherichia coli [E. coli] (principal); K25.4 Chronic or unspecified gastric ulcer with hemorrhage; N39.0 Urinary tract infection, site not specified; K83.09 Other cholangitis; C91.11 Chronic lymphocytic leukemia of B-cell type in remission; N17.9 Acute kidney failure, unspecified; K76.6 Portal hypertension; R18.8 Other ascites; E87.1 Hypo-osmolality and hyponatremia; M48.061 Spinal stenosis, lumbar region without neurogenic claudication; G89.4 Chronic pain syndrome; E80.6 Other disorders of bilirubin metabolism; Z90.49 Acquired absence of other specified parts of digestive tract; E11.9 Type 2 diabetes mellitus without complications; D64.9 Anemia, unspecified; B96.20 Unspecified Escherichia coli [E. coli] as the cause of diseases classified elsewhere; K74.60 Unspecified cirrhosis of liver; D69.6 Thrombocytopenia, unspecified; Z20.822 Contact with and (suspected) exposure to COVID-19; Z86.16 Personal history of COVID-19; Z80.42 Family history of malignant neoplasm of prostate; Z80.0 Family history of malignant neoplasm of digestive organs; Z79.899 Other long term (current) drug therapy; Z79.82 Long term (current) use of aspirin
CPT/HCPCS: 36415; 71046; 74177; 74183; 76376; 76705; 80048; 80053; 80074; 81001; 82104; 82140; 82248; 82390; 82525; 82607; 82728; 82746; 82948; 83036; 83520; 83540; 83550; 83605; 83615; 83690; 83735; 83880; 84100; 84132; 85014; 85018; 85025; 85055; 85610; 85730; 86038; 87040; 87077; 87081; 87086; 87088; 87186; 87426; 87636; 88305; 88342; 93005; 93970; 96365; 96375; 97110; 97116; 97161; 97165; 97530; 97535; 99285; A9270; A9577; C9113; C9803; J0171; J0696; J1170; J1815; J1940; J2354; J2543; J2704; J3370; J3475; J7030; J7120; P9047; Q9967

== ENCOUNTER 2022-04-26 22:33 | Emergency (ER) | payer OTHER, SELFPAY ==
[2022-04-26] VITALS (11 sets, daily range): BP systolic 75–101; BP diastolic 49–68; PULSE 74–166; RESP 15–22; TEMP 36.6; O2SAT 88–97
--- NOTE | ~2022-04-26 | CT_ITS ---
EXAMINATION: CT brain wo con DATE: 04/27/2022 00:49 INDICATION: Altered mental status TECHNIQUE: Computed tomography (CT) of the head was performed without intravenous contrast. Sagittal and coronal reconstructions were performed. The mA was adjusted according to patient size. Iterative reconstruction technique was employed. The dose-length product was 681.00 mGy-cm. COMPARISON: None FINDINGS: Small amount of streak and motion artifact on a few the axial images which only minimally limits eval uation. No acute intracranial hemorrhage, acute infarction or abnormal extra axial fluid collection. There is mild scattered white matter hypoattenuation consistent with chronic small vessel ischemic di sease. Symmetric prominence of the sulci consistent with mild age-appropriate diffuse cerebral volume loss. Ventricles are normal and symmetric. No mass/mass effect. The orbits, paranasal sinuses and ma stoid air cells are normal. Intracranial calcified cerebral atherosclerosis is noted. IMPRESSION: 1. No acute intracranial process. 2. Age-related changes including mild diffuse on loss and mild scattered white matter hypoattenuation consistent with chronic small vessel ischemic disease. Reviewed, dictated and finalized at location A. L ADMINISTRATIVE ASSISTANT
--- NOTE | ~2022-04-26 | CT_ITS ---
EXAMINATION: CT abdomen pelvis wo con DATE: 04/27/2022 00:50 INDICATION: Cirrhosis and jaundice TECHNIQUE: Computed tomography (CT) of the abdomen and pelvis was performed without intravenous contr ast. Automated exposure control and iterative reconstruction technique were employed. The dose-length product was 1073.88 mGy-cm. COMPARISON: 04/08/2022 FINDINGS: Mild bibasilar atelectasis. Heart size is normal. Atherosclerotic coronary artery calcifications. Ect atic distal descending thoracic aorta measuring up to 3.8 cm in maximal diameter. There is calcified atherosclerosis of the aorta and many of the other arteries. Cirrhotic liver with nodular surface con tour. Paraesophageal varices consistent with portal venous hypertension. Cholecystectomy clips at the gallbladder fossa. Spleen, pancreas, bilateral adrenal glands and kidneys are normal. Right hemicole ctomy with ileocolic anastomosis. Suggestion of some persistent wall thickening of a few loops of sma ll bowel in the right abdomen. No pneumatosis. No dilated loops of bowel to suggest obstruction. Ther e are some gas and a Verduzco catheter within the bladder. Endometrial complex is thickened for age mariana uring approximately 10 mm. No free intraperitoneal gas or fluid. No pathologically enlarged abdominal or pelvic lymphadenopathy. Body wall edema. Moderate lumbar and severe lumbosacral spondylosis. IMPRESSION: 1. Cirrhosis with paraesophageal varices consistent with secondary portal venous hypertension. 2. Persistent wall thickening of a few loops of small bowel which could be due to hepatic enteropathy with interstitial edema or an enteritis. 3. Suggestion of abnormal thickening of the endometrial complex. Correlate for abnormal uterine bleed ing and consider further evaluation with pelvic ultrasound. Reviewed, dictated and finalized at location A. ARATORY TECHNICIAN IMPRESSION: 1. Cirrhosis with paraesophageal varices consistent with secondary portal venou s hypertension. 2. Persistent wall thickening of a few loops of small bowel which could be due to hepatic enteropathy with interstitial edema or an enteritis. 3. Suggestion of abnormal thickening of the endometrial complex. Correlate for abnormal uterine bleeding and consider further evaluation with pelvic ultrasoun d.
--- NOTE | ~2022-04-26 | XR_ITS ---
EXAMINATION: XR abdomen NG/feed tube insert DATE: 04/27/2022 04:47 INDICATION: Calculus administration. Nasogastric tube placement. TECHNIQUE: A supine view of the abdomen and lower chest was obtained for evaluation of feeding tube placement. COMPARISON: CT dated 04/23/2022 FINDINGS: Is a gastric tube tip in proximal side port in the body of the stomach. Cholecystectomy clips in the right upper quadrant. No dilated gas-filled loops of bowel visualized abdomen to suggest obstruction. Lung bases are clear. Heart size is normal. IMPRESSION: 1. Nasogastric tube in the stomach. Reviewed, dictated and finalized at location A. ORARY ADMINISTRATIVE ASSISTANT
--- NOTE | ~2022-04-26 | XR_ITS ---
EXAMINATION: XR chest 1V portable DATE: 04/27/2022 00:44 INDICATION: Altered mental status TECHNIQUE: frontal view of the chest was obtained. COMPARISON: Chest radiograph dated 04/08/2022 FINDINGS: Mild bibasilar atelectasis. No pleural effusion or pneumothorax. The cardiomediastinal silhouette is normal. IMPRESSION: 1. Mild bibasilar atelectasis. Reviewed, dictated and finalized at location A. ME TAX ADVISOR
--- NOTE | 2022-04-26 22:47 | ED.AMS ---
HPI - Altered Mental Status General Chief Complaint: Altered Mental Status Stated Complaint: AMS History of Present Illness HPI narrative: 77-year-old female with history of chronic lymphocytic leukemia in remission, status post total colectomy, chronic diarrhea, former smoker, recent diagnosis of decompensated liver cirrhosis presenting to the emergency department by EMS for altered mental status. Patient was just discharged from our facility on 04/18, she was started on ursodiol?follow-up as outpatient with liver specialist from a tertiary care center.. Patient was discharged to a skilled facility but the son was concerned that she was not getting adequate treatment so he checked her out of the facility AMA and patient has been at home for the last week. He states that she while he was away at work she had worsening mental status so he called EMS. Related Data Home Medications Medication Instructions Recorded Confirmed cholestyramine (with sugar) 4 gram 1 ea PO TID 04/08/22 04/08/22 powder for susp in a packet hydrocodone 10 mg-acetaminophen 1 tablet PO Q6H PRN Pain (Scale 04/08/22 04/08/22 325 mg tablet Score 7-10) potassium chloride 20 mEq 20 meq PO DAILY 04/08/22 04/08/22 tablet,extended release (K-Tab) Allergies Allergy/AdvReac Type Severity Reaction Status Date / Time No Known Allergies Allergy Verified 04/08/22 17:40 Review of Systems Review of Systems: ROS unobtainable: Yes unobtainable due to medical condition PMFSH Past Medical History Medical History (Updated 04/27/22 @ 03:13 by Jose Padilla MD) Acute blood loss anemia Carpal tunnel syndrome of right wrist Chronic pain syndrome Cirrhosis COVID-19 E coli bacteremia FH: cholecystectomy Gastric ulcer Lower abdominal pain Melena Rectal pain Prashant disease Surgical History Surgical History History of tubal ligation Hx of removal of ovary Hx of tonsillectomy Family History Family History Sibling Patient's sister is in good health Patient's brother is in good health Father Family history of malignant neoplasm Patient's father is Malignant neoplasm of prostate Carcinoma of colon Mother Family history of malignant neoplasm Patient's mother is Social History Social History (Reviewed 08/31/21 @ 13:06 by Alfredo Lemon Smoking packs per day: 0 Smoking cigarettes per day: 0.0 Years smoked: 60 Smoking pack-years: 0.00 Smoking status: Current every day smoker Second hand tobacco smoke exposure: No Alcohol intake: never Substance use: never Substance use type: does not use Lack of Transportation: No Lack of Food: Never True Current Housing: I Have Housing Concerned About Future Housing: No Difficulty Paying Gas/Electric Bills: No Difficulty Paying for Meds: No Currently Unemployed: No Education: Trade/Vocational Certificate Difficulty w/ Childcare or Family Care: No Spiritual care concerns: No Exam Narrative: APPEARANCE: Ill-appearing HEAD: normocephalic, atraumatic. EYES: PERRLA/EOMI, conjunctivae clear. NOSE: Normal no drainage EARS: Scleral icterus THROAT: Pharynx clear, no exudate. NECK: Supple. No adenopathy, no masses. RESPIRATORY: Airway patent, lower lung consolidation CARDIOVASCULAR: Regular rate and rhythm without murmurs rubs or gallops. ABDOMINAL: Soft, nontender, nondistended, normal bowel sounds MUSCULOSKELETAL: Moves all extremities. Strength/ROM intact, No edema, No calf tenderness. NEURO: Alert. Cranial nerves II through XII intact. Grossly intact SKIN: Very jaundiced Course Course Emergency Course: Patient son states that the patient is supposed to have follow-up with [facility] but they have not yet heard back. Son states he [facility] the patient [facility] of the [facility] AGAINST MEDICAL ADVICE because he felt th
--- NOTE | 2022-04-26 22:57 | ECG_ITS ---
Measurements Intervals [place] Rate: 89 P: [place]: 0 QRS: 64 QRSD: 82 T: 92 QT: 338 QTc: 412 Interpretive Statements PROBABLE SINUS RHYTHM WITH MARKED BASELINE ARTIFACT BORDERLINE ECG REPEAT ECG TO IMPROVE FIDELITY COMPARED TO ECG 04/08/2022 17:28:20 NO SIGNIFICANT CHANGE Electronically Signed On 04-30-2022 17:34:31 SECURITY SITE SUPERVISOR by Deon Watson M.D.
[2022-04-26 23:38] LABS: Basophils Percent Auto 0.1 % (0.2-1.2); Eosinophils Percent Auto 0.1 % (0-4.4); Hematocrit 37.1 % (37.0-47.0); Hemoglobin 12.2 g/dL (12.0-15.0); Immature Granulocyte Absolute 0.07 K/mm3 (0.00-0.031); Immature Granulocyte Percent A 0.5 % (0-0.5); Lymphocytes Absolute Auto 1.78 K/mm3 (0.9-3.2); Lymphocytes Percent Auto 12.9 % (18.3-44.2); Mean Corpuscular HGB Conc 32.9 g/dl (32-36); Mean Corpuscular Hemoglobin 34.6 pg (26-34); Mean Corpuscular Volume 105.1 fl (80-100); Mean Platelet Volume 10.5 fl (7.4-10.4); Monocytes Absolute Auto 1.2 K/mm3 (0.1-0.6); Monocytes Percent Auto 8.8 % (2.6-8.5); Neutrophils Absolute Auto 10.7 K/mm3 (1.3-6.7); Neutrophils Percent Auto 77.6 % (45.5-73.1); Platelet Count Result 159 k/mm3 (150-375); Red Blood Count 3.53 M/mm3 (4.2-5.4); Red Cell Distribution Width 22.1 % (11.5-14.5); White Blood Count 13.8 K/mm3 (4.5-10.0)
[2022-04-26] MEDS: SODIUM CHLORIDE 0.9% IV 1,000 ML 999 ML IV CONT (23:41)
[2022-04-27] VITALS (92 sets, daily range): BP systolic 56–269; BP diastolic 29–218; PULSE 63–170; RESP 11–29; O2SAT 92–99
[2022-04-27 00:01] LABS: Alanine Aminotransferase 115 U/L (6-35); Albumin Level 2.8 g/dL (3.5-5.1); Alkaline Phosphatase 244 U/L (38-126); Anion Gap 15 mmol/L (8-16); Aspartate Amino Transferase 213 U/L (14-36); Bilirubin,Total 35.9 mg/dL (0.2-1.3); Blood Urea Nitrogen 54 mg/dL (7-17); Calcium 8.2 mg/dL (8.4-10.2); Carbon Dioxide 13 mmol/L (22-30); Chloride 116 mmol/L (98-107); Estimated CRCL calculation 12 ml/min; Estimated Glomerular Filt Rate 10; Glucose 57 mg/dL (65-110); Potassium 3.3 mmol/L (3.4-5.0)
[2022-04-27 00:17] LABS: Alveolar/Arterial O2 Gradient 106.7 mmHg; Base Excess ABG -10.6 mEq/l (+/-2.0); Fractional Inspired Oxygen 32 %; HCO3 ABG 13.6 mEq/l (22.0-26.0); Oxygen Content ABG 15.4 %vol (16.0-22.0); Oxygen Saturation ABG 96.8 % (95.0-100.0); Oxyhemoglobin 94.6 % THb (90.0-100.0); PCO2 ABG 25.5 mmHg (35.0-45.0); PO2 ABG 91.6 mmHg (80.0-100.0); PO2 FiO2 Ratio Arterial Blood 2.86 %; Total Hemoglobin 11.5 g/dL (12.0-18.0); pH ABG 7.344 (7.350-7.450)
[2022-04-27 00:18] LABS: Influenza A QL RT-PCR Negative (Negative); Influenza B QL RT-PCR Negative (Negative); RSV RNA, RT-PCR Negative (Negative); SARS-CoV-2 RNA PCR Negative
[2022-04-27 00:18] LABS: Device NASAL CANNULA; Modified Allen's Test Pass; Site Drawn LEFT RADIAL
[2022-04-27 00:19] LABS: Platelet Estimate Adequate (Adequate)
[2022-04-27 00:20] LABS: Anisocytosis 1+ (NORMAL); Macrocytosis 2+ (NORMAL); Microcytosis 1+ (NORMAL); Poikilocytosis 2+ (NORMAL)
[2022-04-27 00:21] LABS: Acanthocytes 1+ (NORMAL); Burr Cells 2+ (NORMAL); Crenated RBC 1+ (NORMAL)
[2022-04-27 00:22] LABS: Schistocytes 1+ (NORMAL)
[2022-04-27] MEDS: DEXTROSE 50% 25 GM/50 ML SYRINGE IV PUSH (00:53)
[2022-04-27] MEDS: SODIUM CHLORIDE 0.9% IV 1,000 ML 1000 ML IV CONT (00:54)
[2022-04-27 01:10] LABS: Bacteria Urine 4+ /hpf; Mucus Urine Few /lpf; Squamous Epithelial Cell Urine Many /hpf (Few); WBC Urine 21-30 /hpf
[2022-04-27 01:42] LABS: Appearance Urine Turbid (Clear); Blood Urine 2+ (Negative); Color Urine Dark Orange (Yellow); Glucose Urine UA Trace mg/dL (Negative); Ketones Urine Trace mg/dL (Negative); Protein Urine 1+ mg/dL (Negative); Specific Grav Ur 1.025 (1.001-1.035); pH Urine 6.5 (5.0-9.0)
[2022-04-27 01:43] LABS: Add Urine Microscopic? YES; Bilirubin Urine 3+ (Negative); Leukocyte Esterase Ur Negative LEU/UL (Negative); Nitrate Urine Positive (Negative)
[2022-04-27] MEDS: SODIUM BICARBONATE 8.4% 150 MEQ in DEXTROSE 5% 1,000 ML 950 ML 100 MEQ IV CONT (02:38)
[2022-04-27 02:59] LABS: INR 3.6; Prothrombin Time 34.5 Seconds (11.1-14.7)
[2022-04-27 03:00] LABS: Partial Thromboplastin Time 47.9 SECONDS (22.3-36.8)
[2022-04-27] MEDS: ALBUMIN HUMAN 25% 25 GM/100 ML 100 ML IVPB (03:01)
[2022-04-27 03:47] LABS: Toxigenic C. Diff POSITIVE (NEGATIVE)
--- NOTE | 2022-04-27 05:01 | PC.NURSE ---
16fr Nasogastric tube in place.
--- NOTE | 2022-04-27 05:03 | PC.NURSE ---
Patient appears soiled upon arrival to ED. Buttocks with excoriation and dried feces. Patient stools appears liquid.
[2022-04-27 05:17] LABS: Ammonia 68 umol/L (9-30)
[2022-04-27 05:20] LABS: Sodium 144 mmol/L (137-145)
[2022-04-27 05:26] LABS: Glucose Point of Care 92 mg/dl (65-105)
--- NOTE | 2022-04-27 06:19 | PC.NURSE ---
Patient to go to room 312 at [facility]. Awaiting transport to [facility] Report called to Joyce HURTADO
[2022-04-27] MEDS: VANCOMYCIN ORAL 500 MG/10 ML SYRUP PO (07:26)
--- NOTE | 2022-04-27 10:24 | PC.NURSE ---
CALLED [facility] FOR UPDATE ON TRANSPORTATION TO [facility] FOR DIRECT ADMISSION BED AND DISPATCH REPORTS TRIP NOW HAS BEEN PUSHED BACK TO APPROX [id number]
[2022-04-27] MEDS: LACTULOSE 20 GM/30 ML UDC FEED TUBE (10:40)
[2022-04-27] MEDS: SODIUM CHLORIDE 0.9% IV 1,000 ML 100 ML (13:17)
[2022-04-27] MEDS: ALBUMIN HUMAN 25% 25 GM/100 ML 200 ML IVPB (13:17)
--- NOTE | 2022-04-27 16:50 | PC.NURSE ---
Pt transported with Albumin and NS fluids infusing.
== END 2022-04-27 16:40 | disposition short-term general hospital (02) ==
PROVIDERS: Emergency Provider Emergency Medicine; PCP Internal Medicine
DX: E72.20 Disorder of urea cycle metabolism, unspecified (principal); K74.60 Unspecified cirrhosis of liver; E83.01 Wilson's disease; N17.9 Acute kidney failure, unspecified; E80.6 Other disorders of bilirubin metabolism; G93.40 Encephalopathy, unspecified; N39.0 Urinary tract infection, site not specified; Z20.822 Contact with and (suspected) exposure to COVID-19; C91.11 Chronic lymphocytic leukemia of B-cell type in remission; G89.4 Chronic pain syndrome; Z86.16 Personal history of COVID-19; Z90.49 Acquired absence of other specified parts of digestive tract; Z87.891 Personal history of nicotine dependence; Z79.82 Long term (current) use of aspirin; R94.31 Abnormal electrocardiogram [ECG] [EKG]; I85.10 Secondary esophageal varices without bleeding; R93.3 Abnormal findings on diagnostic imaging of other parts of digestive tract; R93.89 Abnormal findings on diagnostic imaging of other specified body structures
CPT/HCPCS: 36415; 36600; 51702; 70450; 71045; 74176; 80053; 81001; 82140; 82805; 82948; 85025; 85610; 85730; 87040; 87086; 87147; 87181; 87186; 87493; 87637; 93005; 96361; 96365; 96366; 96367; 96368; 96375; 96376; 99285; A9270; J0696; J1100; J7030; J7070; P9047